=== PATIENT | female | born 1960 | race Caucasian/White ===

== ENCOUNTER → 2017-03-02 | Outpatient (CLI) | payer MEDICARE ==
--- NOTE | 2017-03-03 13:33 | MM ---
Reason for exam: screening (asymptomatic). Last mammogram was performed 1 year and 2 months ago. History: Patient is postmenopausal and is nulliparous. Benign US right core biopsy of the right breast, September 21, 2006. Took hormonal contraceptives for 4 years. Physical Findings: A clinical breast exam by your physician is recommended on an annual basis and results should be correlated with mammographic findings. MG 3D Screening Mammo W/Cad Bilateral CC, MLO, and XCCL view(s) were taken. Prior study comparison: January 05, 2016, bilateral MG 3d screening mammo w/cad. November 07, 2014, bilateral MG screening mammo w CAD. The breast tissue is extremely dense which could obscure a lesion on mammography. No significant changes when compared with prior studies. ASSESSMENT: Benign, BI-RAD 2 RECOMMENDATION: Routine screening mammogram of both breasts in 1 year.
== END | disposition home or self-care (01) ==
LOC: RADMAMWWP 12:02
PROVIDERS: ATTEND Family Medicine
DX: Z12.31 Encounter for screening mammogram for malignant neoplasm of breast (principal)
CPT/HCPCS: 77063; G0202

== ENCOUNTER → 2018-03-30 | Outpatient (CLI) | payer MEDICARE ==
--- NOTE | 2018-03-31 10:03 | MM ---
Reason for exam: screening (asymptomatic). Last mammogram was performed 1 year and 1 month ago. History: Patient is postmenopausal and is nulliparous. Benign US right core biopsy of the right breast, September 21, 2006. Took hormonal contraceptives for 4 years. Physical Findings: A clinical breast exam by your physician is recommended on an annual basis and results should be correlated with mammographic findings. MG 3D Screening Mammo W/Cad Bilateral CC, MLO, and XCCL view(s) were taken. Prior study comparison: March 02, 2017, bilateral MG 3d screening mammo w/cad. January 05, 2016, bilateral MG 3d screening mammo w/cad. The breast tissue is heterogeneously dense. This may lower the sensitivity of mammography. Focal asymmetry in the left breast on MLO view. This finding is changed when compared with previous exams. ASSESSMENT: Incomplete: need additional imaging evaluation, BI-RAD 0 RECOMMENDATION: Special view mammogram of the left breast. If lesion persists on supplemental views, image directed ultrasound is recommended. [facility] will attempt to contact patient to return for supplemental views and ultrasound if indicated.
== END | disposition home or self-care (01) ==
LOC: RADMAMWWP 14:08
PROVIDERS: ATTEND Family Medicine
DX: Z12.31 Encounter for screening mammogram for malignant neoplasm of breast (principal)
CPT/HCPCS: 77063; 77067

== ENCOUNTER → 2018-04-10 | Outpatient (CLI) | payer MEDICARE ==
--- NOTE | 2018-04-10 08:55 | MM ---
Reason for exam: additional evaluation requested from abnormal screening. Last mammogram was performed less than 1 month ago. History: Patient is postmenopausal and is nulliparous. Benign US right core biopsy of the right breast, September 21, 2006. Took hormonal contraceptives for 4 years. Physical Findings: Nurse did not find any significant physical abnormalities on exam. MG 3D Work Up W/Cad LT CC and MLO view(s) were taken of the left breast. Prior study comparison: March 30, 2018, bilateral MG 3d screening mammo w/cad. March 02, 2017, bilateral MG 3d screening mammo w/cad. The breast tissue is heterogeneously dense. This may lower the sensitivity of mammography. The questioned central posterior density on MLO disperses on additional vies. Precautionary 6 month follow up recommended. These results were verbally communicated with the patient and result sheet given to the patient on 04/10/18. ASSESSMENT: Probably benign, BI-RAD 3 RECOMMENDATION: Follow-up diagnostic mammogram of the left breast in 6 months.
== END | disposition home or self-care (01) ==
LOC: RADMAMWWP 07:25
PROVIDERS: ATTEND Family Medicine
DX: R92.8 Other abnormal and inconclusive findings on diagnostic imaging of breast (principal)
CPT/HCPCS: 77065; G0279; 77061

== ENCOUNTER → 2018-04-27 | Outpatient (CLI) | payer MEDICARE ==
--- NOTE | 2018-04-27 12:08 | CTL ---
EXAMINATION TYPE: CT Low Dose Lung DATE OF EXAM ORDERED: 04/27/2018 HISTORY: 57-year-old female no complaints at time of study. History of tobacco use.. Lung cancer scr eening CT DLP: 67.[address] CTDI: 1.8 mGy Automated exposure control for dose reduction was used. SCREENING VISIT: Baseline COMPARISON: None TECHNIQUE: Low dose computed tomography scan was performed through the chest at 1 mm thick sections a nd reconstructed images in the coronal plane at 1 mm thick sections. Coronal and sagittal MIP reconst ructions performed. CT DIAGNOSTIC QUALITY: Satisfactory FINDINGS: Heart normal size with trace anterior basilar pericardial fluid. Aorta normal caliber with conventional arch vessel branching anatomy. Scattered nonenlarged mediastinal lymph nodes. No thoracic lymphadenopathy by CT size criteria. Mild diffuse bronchial wall thickening and mild centrilobular emphysema. No consolidation or pleural effusion. Some strandy atelectasis anterior medial right mid to lower lung. Mild biapical pleural-par enchymal scarring. -3 mm right upper lobe pulmonary nodule axial image 75. No other pulmonary nodule or mass is seen. Visualized upper abdomen shows partially calcified low-density mass of the right adrenal gland measur ing 2.3 cm, probable pseudocyst. The possibility of other mass not excluded at this time. Bones: Mild degenerative disc disease throughout the thoracic spine. IMPRESSION: 1. LungRADS 2S - benign (but with a potentially significant non lung cancer finding, see below #3); s olitary 3 mm pulmonary nodule on the right. 2. COPD with mild emphysema. 3. Partially calcified 2.3 cm lesion within the right adrenal gland. Possible adrenal pseudocyst from prior hemorrhage. A partially calcified mass is not excluded at this time. RECOMMENDATIONS: 1. Continue with annual low-dose lung cancer screening CT of the chest. 2. Smoking cessation. 3. 3 - 6 month follow-up adrenal mass protocol CT. CT LUNG RAD: Lung-Rad 2 Benign Appearance or Behavior
== END | disposition home or self-care (01) ==
LOC: RADCTMAIN 10:49
PROVIDERS: ATTEND Family Medicine
DX: Z12.2 Encounter for screening for malignant neoplasm of respiratory organs (principal); R91.1 Solitary pulmonary nodule; J43.9 Emphysema, unspecified; Z87.891 Personal history of nicotine dependence

== ENCOUNTER → 2018-10-25 | Outpatient (CLI) | payer MEDICARE ==
--- NOTE | 2018-10-30 17:11 | MM ---
Reason for exam: follow-up at short interval from prior study. Last mammogram was performed 6 months ago. History: Patient is postmenopausal and is nulliparous. Benign US right core biopsy of the right breast, September 21, 2006. Took hormonal contraceptives for 4 years. Physical Findings: Nurse did not find any significant physical abnormalities on exam. MG 3D Diag Mammo W/Cad LT CC, MLO, and XCCL view(s) were taken of the left breast. Prior study comparison: April 10, 2018, left breast MG 3d work up w/cad LT. March 30, 2018, bilateral MG 3d screening mammo w/cad. The breast tissue is extremely dense which could obscure a lesion on mammography. No significant new finding when compared with prior studies. These results were verbally communicated with the patient and result sheet given to the patient on 10/25/18. ASSESSMENT: Benign, BI-RAD 2 RECOMMENDATION: Return to routine screening mammogram schedule for both breasts.
== END ==
LOC: RADMAMWWP 06:48
PROVIDERS: ATTEND Family Medicine
DX: R92.8 Other abnormal and inconclusive findings on diagnostic imaging of breast (principal)
CPT/HCPCS: 77065; G0279; 77061

== ENCOUNTER → 2018-12-11 | Outpatient (CLI) | payer MEDICARE ==
[2018-12-11 14:38] LABS: Basophils % (A) 0 %; Eosinophils % (A) 1 %; HCT 45.2 % (34.0-46.0); HGB 14.8 gm/dL (11.4-16.0); Lymphocytes # (A) 1.7 k/uL (1.0-4.8); Lymphocytes % (A) 25 %; MCH 33.6 pg (25.0-35.0); MCHC 32.8 g/dL (31.0-37.0); MCV 102.4 fL (80.0-100.0); Macrocytosis Slight; Mean Platelet Volume 6.6; Monocytes # (A) 0.3 k/uL (0-1.0); Monocytes % (A) 5 %; Neutrophils # (A) 4.6 k/uL (1.3-7.7); Neutrophils % (A) 68 %; Platelet Count 294 k/uL (150-450); RBC 4.42 m/uL (3.80-5.40); RDW 12.6 % (11.5-15.5); WBC 6.7 k/uL (3.8-10.6)
[2018-12-11 14:44] LABS: Appearance,Urine Clear (Clear); Bilirubin,Urine Negative (Negative); Blood,Urine Negative (Negative); Color,Urine Light Yellow; Glucose,Urine (UA) Negative (Negative); Ketones,Urine Negative (Negative); Leukocyte Esterase,Urine Negative (Negative); Nitrite,Urine Negative (Negative); Protein,Urine Negative (Negative); Specific Gravity,Urine 1.007 (1.001-1.035); Urobilinogen,Urine <2.0 mg/dL (<2.0)
[2018-12-11 14:47] LABS: INR 0.9 (<1.2); Partial Thromboplastin Time 26.6 sec (22.0-30.0)
== END ==
LOC: LABPAT 12:57
PROVIDERS: ATTEND Orthopaedic Surgery Orthopaedic Surgery of the Spine
DX: Z01.818 Encounter for other preprocedural examination (principal); Z01.812 Encounter for preprocedural laboratory examination; M48.02 Spinal stenosis, cervical region; G95.89 Other specified diseases of spinal cord; Z79.01 Long term (current) use of anticoagulants
CPT/HCPCS: 81003; 85025; 85610; 85730; 86850; 86900; 86901; 93005

== ENCOUNTER → 2018-12-11 | Outpatient (CLI) | payer MEDICARE ==
[2018-12-11 19:54] LABS: Albumin 4.7 g/dL (3.80-4.90); Albumin/Globulin Ratio 2.35 (1.60-3.17); Anion Gap 9.8 mmol/L (4.00-12.00); Calcium 10.2 mg/dL (8.7-10.3); Carbon Dioxide 29.2 mmol/L (21.6-31.8); Potassium 5.1 mmol/L (3.5-5.5); Total Bilirubin 0.6 mg/dL (0.2-1.2); Total Protein 6.7 g/dL (6.2-8.2)
== END | disposition home or self-care (01) ==
LOC: LABWHC1 13:07
PROVIDERS: ATTEND Family Medicine
DX: Z01.812 Encounter for preprocedural laboratory examination (principal)
CPT/HCPCS: 36415; 80053

== ENCOUNTER 2018-12-20 06:32 | Day surgery (SDC) | payer MEDICARE ==
[2018-12-12 10:22] VITALS: BMI 28.1
[~2018-12-20 06:32] MED LIST: BACITRACIN 50,000 UNIT, POLYMYXIN B 500,000 UNIT in SODIUM CHLORIDE 0.9% IRRIGATIO 1,00... IRRIGATION ONE; DEXAMETHASONE SOD PHOSPHATE 10 MG/ML 1 ML VIAL IV ONE; LACTATED RINGERS 1,000 ML IV SCH; LIDOCAINE 1% 20 ML VIAL (10MG/ML) FOR IV START INTRADERMA PRN; MIDAZOLAM (PF) 2 MG/2 ML VIAL IV PRN; ONDANSETRON 4 MG/2 ML VIAL IVP ONE; SCOPOLAMINE 1.5MG/72HR PATCH TRANSDERM ONE; ceFAZolin IN SWFI 2 GM/20 ML SYRINGE IVP ONE
[2018-12-20] MEDS ORDERED: LIDOCAINE 1% INJ 10MG/ML (20 ML MDV) ONE (07:27)
[2018-12-20] MEDS ORDERED: fentaNYL (PF) 50 MCG/ML 2 ML AMP ONE (07:27)
[2018-12-20] MEDS ORDERED: ePHEDrine SULFATE/0.9% NACL/PF 50 MG/5 ML SYRINGE IV ONE (07:27)
[2018-12-20] MEDS ORDERED: SUCCINYLCHOLINE CHLORIDE 100 MG/5 ML SYR IV ONE (07:27)
[2018-12-20] MEDS ORDERED: GLYCOPYRROLATE 0.2 MG/ML 2 ML VIAL ONE (07:27)
[2018-12-20] MEDS ORDERED: DEXAMETHASONE SOD PHOS (MDV) 100 MG/10 ML VIAL ONE (07:27)
[2018-12-20] MEDS ORDERED: PROPOFOL 10 MG/ML 20 ML VIAL IV ONE (07:27)
[2018-12-20] MEDS ORDERED: MIDAZOLAM 2 MG/2 ML VIAL ONE (07:27)
[2018-12-20] MEDS ORDERED: PHENYLEPHRINE-0.9% NACL SYG 1 MG/10 ML SYRINGE ONE (07:27)
[2018-12-20] MEDS ORDERED: KETAMINE 10 MG/ML 20 ML VIAL ONE (07:27)
[2018-12-20] MEDS ORDERED: BUPIVACAINE-EPI 0.5%-1:200,000 10 ML VIAL SQ ONE ×2 (07:28→08:18)
[2018-12-20] MEDS ORDERED: LACTATED RINGERS 1,000 ML IV ONE (08:15)
[2018-12-20] MEDS ORDERED: THROMBIN (BOVINE) 5,000 UNIT VIAL TOPICAL ONE (08:25)
[2018-12-20] MEDS ORDERED: GELATIN SPONGE,ABSORB (LARGE) 1 EACH SPONGE MISCELLANE ONE (08:25)
[2018-12-20] MEDS ORDERED: BACITRACIN 50,000 UNIT, POLYMYXIN B 500,000 UNIT in SODIUM CHLORIDE 0.9% IRRIGATIO 1,00... IRRIGATION ONE (09:30)
--- NOTE | 2018-12-20 10:08 | XR ---
EXAMINATION TYPE: XR cervical spine 1V, XR cervical spine 1V DATE OF EXAM: 12/20/2018 COMPARISON: NONE HISTORY: Hardware placement localization TECHNIQUE: Single view of the cervical spine was obtained FINDINGS: Localization is seen from anterior approach at the C4-C5 intervertebral disc space levels. Endotracheal tube is present. Degenerative disc disease of the cervical spine is noted. IMPRESSION: Localization from an anterior approach at C4-C5 intervertebral disc space.
[2018-12-20] MEDS ORDERED: MAG HYDROX/AL HYDROX/SIMETH 30 ML CUP PO PRN (10:12)
[2018-12-20] MEDS ORDERED: HYDROmorphone 1 MG/ML 1 ML SYRINGE IVP PRN (10:12)
[2018-12-20] MEDS ORDERED: HYDROmorphone 0.5 MG/0.5 ML SYRINGE IVP PRN (10:12)
[2018-12-20] MEDS ORDERED: ACETAMINOPHEN TAB 325 MG TAB PO PRN (10:12)
[2018-12-20] MEDS ORDERED: BENZOCAINE/MENTHOL LOZENG 1 EACH LOZENGE MUCOUS MEM PRN (10:12)
[2018-12-20] MEDS ORDERED: HYDROcodone/APAP 7.5-325MG 1 EACH TAB PO PRN ×2 (10:14)
[2018-12-20] MEDS ORDERED: FLUTICASONE 50MCG/SPRAY NASAL 16GM EA NOSTRIL PRN (10:14)
[2018-12-20] MEDS ORDERED: ALBUTEROL NEBULIZED 2.5 MG/3 ML INHALATION PRN (10:14)
[2018-12-20] MEDS ORDERED: CYCLOBENZAPRINE 10 MG TAB PO PRN (10:14)
[2018-12-20] MEDS ORDERED: SODIUM CHLORIDE 0.9% 1,000 ML IV SCH (10:15)
--- NOTE | 2018-12-20 10:23 | P.OP ---
Date of Procedure: 12/20/18 Preoperative Diagnosis: Cervical stenosis C3 4 C4 5 C5 6, cervical myelopathy, cervical myelomalacia behind C3 4, disc herniation C3 4 C4 5 C5 6, severe disc degeneration, large osteophytes, neck pain, upper extremity radiculopathy, upper extremity weakness Postoperative Diagnosis: Same Anesthesia: GETA Pathology: none sent Condition: stable Disposition: PACU Description of Procedure: BRIEF OPERATIVE NOTE Preoperative Diagnosis:Cervical stenosis C3 4 C4 5 C5 6, cervical myelopathy, cervical myelomalacia behind C3 4, disc herniation C3 4 C4 5 C5 6, severe disc degeneration, large osteophytes, neck pain, upper extremity radiculopathy, upper extremity weakness Postoperative Diagnosis: Same Procedure: Anterior cervical decompression with discectomy and fusion C3 4 C4 5 C5 6 Placement of interbody graft C3 4 C4 5 C5 6 Application of anterior cervical plate C3 4 5 6 Removal of large anterior cervical osteophytes C3 4 5 6 Surgeon: Dr. Keiht Anesthesiologist And Critical Care: Abril Streeter is present during positioning, dissection, exposure, visualization, and all crucial elements of the case as well as closure. Anesthesia: General anesthesia Estimated blood loss: Approximately 50 mL Complications: None apparent Components implanted: K2M [place] titanium anterior cervical plate with screws and Vikos interbody allograft bone graft with 1 mL of DBX bone putty to supplemental a bone graft Disposition: To recovery room in good stable condition. OPERATIVE INDICATIONS The patient has had long-standing issues in their neck and upper extremities. She's been having worsening symptoms despite aggressive conservative care. She is having severe pain in her neck and symptom intraoperative extremities particularly on the left side. She was having evidence of early cervical myelopathy and on her imaging was found have early cervical myelomalacia with severe cervical stenosis at C3 4 C4 5 C5 6 with disc degeneration disc herniation which correlated with her neck and upper extremity symptoms. The patient has been through conservative treatment. She is not having any benefit despite aggressive conservative treatment and was having worsening of her symptoms We discussed various treatment options including surgery, and the patient wishes to proceed with surgery We discussed the risk, patient's alternatives and benefits of surgery including but not limited to, risk of bleeding risk of infection, risk of need for further surgery, risk of decreased, loss of motion, muscle function, malunion nonunion, hardware failure, nerve damage, paralysis, heart attack, and . OPERATIVE SUMMARY After discussing all the risks, patient alternatives and benefits at length, the patient elected to proceed with surgical intervention, signed informed consent, and presented for their procedure. The patient was seen and examined in the preoperative holding area and the surgical site was marked. The patient was given antibiotics and brought to the operating room. The patient was positioned on the operating room table in a supine position being careful to pad any bony prominences and pressure points. The patient was sedated and intubated by anesthesia in standard fashion. Once the airway and C- spine were stabilized the patient's arms were padded and tucked at her side, with her shoulders gently taped. The head was placed in a donut pad with the neck in good neutral alignment and position. We were careful to maintain the patient's cervical spine and good neutral alignment and position throughout. The patient was prepped and draped in a normal standard fashion. An appropriate timeout and keystone protocol performed. We were able to proceed with the surgery. The local wound area was infiltrated with local anesthetic. An incision was made transversely approximately 2-1/2 cm over the appropriate levels at C4 5. Dissection was taken down subcutaneously to the level of the platysma which was split in line with its fibers. Dissection was taken with a carotid approach, with the trachea and esophagus medial and the carotid sheath laterally. We dissected down to the anterior surface of the vertebral bodies. Intraoperative x-ray was taken which showed a marker at the appropriate level. With the appropriate level positively confirmed, we were able to proceed with discectomy at the appropriate levels starting at C3 4 and then working C4 5 and C5 6. All of the operative levels were exposed appropriately. The patient had all their twitches back, and there was no evidence of recurrent laryngeal issue. The wound was copiously irrigated and suctioned dry as had been done periodically throughout the case. At the appropriate level/levels, starting at C3 4 and then moving the C4 5 and C5 6 I established an annulotomy with an 11 blade scalpel. Large anterior osteophytes had removed particular at C4 5 and C5 6 for exposure. A discectomy was performed with a combination of pituitary rongeurs, curettes, a high-speed bur, and Kerrison rongeurs. The posterior longitudinal ligament was taken down as were any posterior osteophytes. There is severe disc height loss and essentially axqi-gw-[id number] articulation particularly at C4 5 and C5 6. There was a large central disc herniation at C3 4 and significant disc protrusion and stenosis at C45 and C5 6. As able to remove the disc and posterior osteophytes as well as posterior longitudinal ligament appropriately. This gave good central and bilateral foraminal decompression. There is no evidence of any dural tear or leak. The endplates were prepared with a high-speed bur. With the endplates in good parallel position, I was able to size for the appropriate size interbody graft. The wound was irrigated and suctioned dry the graft was prepared and malleted into position. It had good alignment and position with the anterior surface flush with the anterior surface of the vertebral bodies. This was done similarly the appropriate levels from C3 to C6. With the grafts intact, I was able to measure and contour and appropriate sized plate. The plate was positioned at the midline over the appropriate levels from C3 to C6. Screw holes were established with a hand drill and drill guide. Screws were placed in good alignment and position with excellent bony purchase. They were seated under the locking device. The construct was checked and found to be stable. Intraoperative x-ray was taken which showed good alignment and position of the implants at the appropriate levels from C3 to C6. There was no evidence of any dural tear or leak. Good hemostasis was maintained. The wound was copiously irrigated and suctioned dry as had been done periodically throughout the case. The platysma was closed with absorbable suture. The subcutaneous tissue was closed. The subcuticular tissue was closed with absorbable suture. The wound was cleaned and dried and dressed appropriately. A soft cervical collar was placed appropriately. The patient was woken up by anesthesia, extubated, transferred back gently to their hospital bed and brought to the recovery room in good stable condition. The patient will be admitted to the hospital for appropriate postoperative care, medical management and monitoring. We will continue to follow them closely about the postoperative course.
[2018-12-20 10:25] VITALS: TEMP 97.1
[2018-12-20] MEDS: HYDROmorphone 0.5 MG/0.5 ML SYRINGE IVP PRN ×2 (11:30→11:36)
[2018-12-20 11:58] VITALS: RESP 18
[2018-12-20] MEDS ORDERED: HYDROcodone/APAP 7.5-325MG 1 EACH TAB PO ONE (12:29)
[2018-12-20 12:40] VITALS: BP 128/72; PULSE 72
[2018-12-20] MEDS ORDERED: ceFAZolin IN SWFI 2 GM/20 ML SYRINGE IVP SCH (16:00)
[2018-12-20] MEDS ORDERED: MONTELUKAST 10 MG TAB PO SCH (21:00)
[2018-12-21] MEDS ORDERED: IPRATROPIUM 0.5 MG/2.5 ML NEBU INHALATION SCH (08:00)
[2018-12-21] MEDS ORDERED: CITALOPRAM HYDROBROMIDE 20 MG TAB PO SCH (09:00)
[2018-12-21] MEDS ORDERED: LORATADINE 10 MG TAB PO SCH (09:00)
[2018-12-21] MEDS ORDERED: CHOLECALCIFEROL 1,000 UNIT TAB PO SCH (09:00)
[2018-12-21] MEDS ORDERED: SENNOSIDES-DOCUSATE SODIUM 1 EACH TAB PO SCH ×2 (09:00)
== END 2018-12-20 13:29 | disposition home or self-care (01) ==
LOC: OR 06:32 → EDSTATUS 09:45 → OR 13:29
PROVIDERS: ATTEND Orthopaedic Surgery Orthopaedic Surgery of the Spine
DX: M50.01 Cervical disc disorder with myelopathy, high cervical region (principal); M48.02 Spinal stenosis, cervical region; M54.12 Radiculopathy, cervical region; G95.89 Other specified diseases of spinal cord; M25.78 Osteophyte, vertebrae; J44.9 Chronic obstructive pulmonary disease, unspecified; F17.218 Nicotine dependence, cigarettes, with other nicotine-induced disorders; J98.4 Other disorders of lung; F32.9 Major depressive disorder, single episode, unspecified; F41.9 Anxiety disorder, unspecified; M19.90 Unspecified osteoarthritis, unspecified site; R51 Headache; Z79.899 Other long term (current) drug therapy; Z88.8 Allergy status to other drugs, medicaments and biological substances; Z91.013 Allergy to seafood; Z96.643 Presence of artificial hip joint, bilateral
CPT/HCPCS: 22551; 22552 ×2; 20930; 22853 ×3; 72020; C1713 ×2; C1762 ×2; J2250; J2405; J2001; J3010; J1100; J2370; J0330; J2704; J1170; J0690; 86850; 86900; 86901

== ENCOUNTER → 2019-05-25 | Outpatient (CLI) | payer MEDICARE ==
--- NOTE | 2019-05-29 09:23 | MM ---
Reason for exam: screening (asymptomatic). Last mammogram was performed 7 months ago. History: Patient is postmenopausal and is nulliparous. Benign US right core biopsy of the right breast, September 21, 2006. Took hormonal contraceptives for 4 years. Physical Findings: A clinical breast exam by your physician is recommended on an annual basis and results should be correlated with mammographic findings. MG 3D Screening Mammo W/Cad Bilateral CC, MLO, and XCCL view(s) were taken. Prior study comparison: October 25, 2018, left breast MG 3d diag mammo w/cad LT. April 10, 2018, left breast MG 3d work up w/cad LT. The breast tissue is heterogeneously dense. This may lower the sensitivity of mammography. No significant changes when compared with prior studies. ASSESSMENT: Negative, BI-RAD 1 RECOMMENDATION: Routine screening mammogram of both breasts in 1 year. Patient should continue monthly self breast exams. A negative report should not preclude additional follow up of suspicious palpable abnormalities.
== END | disposition home or self-care (01) ==
LOC: RADMAMWWP 15:30
PROVIDERS: ATTEND Family Medicine
DX: Z12.31 Encounter for screening mammogram for malignant neoplasm of breast (principal)
CPT/HCPCS: 77063; 77067

== ENCOUNTER → 2019-08-24 | Outpatient (CLI) | payer MEDICARE ==
--- NOTE | 2019-08-24 11:44 | CTL ---
EXAMINATION TYPE: CT Low Dose Lung DATE OF EXAM ORDERED: 08/24/2019 HISTORY: . Lung cancer screening CT DLP: [address] CTDI: 1.87 mGy Automated exposure control for dose reduction was used. SCREENING VISIT: COMPARISON: 04/27/2018 TECHNIQUE: Low dose computed tomography scan was performed through the chest at 1 mm thick sections a nd reconstructed images in the coronal plane at [address] DIAGNOSTIC QUALITY: Satisfactory FINDINGS: Heart normal size with trace anterior basilar pericardial fluid. Aorta normal caliber with conventional arch vessel branching anatomy. Scattered nonenlarged mediastinal lymph nodes. No thoracic lymphadenopathy by CT size criteria. Mild diffuse bronchial wall thickening and mild centrilobular emphysema. No consolidation or pleural effus ion. Some strandy atelectasis anterior medial right mid to lower lung. Mild biapical pleural-parenchymal scarring. There is a stable 3 mm right upper lobe pulmonary nodule. There now is a 2 mm subpleural nodule right upper lobe image 135. Subsegmental changes seen anterior ly within the left lung. Most typical atelectasis. Visualized upper abdomen shows partially calcified low-density mass of the right adrenal gland measur ing 2.3 cm, probable pseudocyst. The possibility of other mass not excluded at this time. Bones: Mild degenerative disc disease throughout the thoracic spine. IMPRESSION: 1. LungRADS 2S - benign 3 mm pulmonary nodule in the right upper lobe is stable. There is a new 2 mm subpleural nodule on image #135 which has a benign appearance. 2. COPD with mild emphysema. 3. Partially calcified 2.3 cm lesion within the right adrenal gland. Possible adrenal pseudocyst from prior hemorrhage. A partially calcified mass is not excluded at this time. Findings stable from prio r exam. FOLLOW UP CT CHEST RECOMMENDATION: 1. Continue with annual low-dose lung cancer screening CT of the chest. 2. Smoking cessation. CT LUNG RAD: Lung-Rad 2 Benign Appearance or Behavior
== END ==
LOC: RADCTMAIN 11:08
PROVIDERS: ATTEND Family Medicine
DX: J43.9 Emphysema, unspecified (principal); F17.200 Nicotine dependence, unspecified, uncomplicated

== ENCOUNTER → 2020-05-08 | Day surgery (SDC) | payer MEDICARE ==
[2020-05-07 10:33] VITALS: BMI 28.1
[~2020-05-08] MED LIST changes: -BACITRACIN 50,000 UNIT, POLYMYXIN B 500,000 UNIT in SODIUM CHLORIDE 0.9% IRRIGATIO 1,00... IRRIGATION ONE; -DEXAMETHASONE SOD PHOSPHATE 10 MG/ML 1 ML VIAL IV ONE; +LACTATED RINGERS 1,000 ML IV ONE; +LIDOCAINE 1% (10MG/ML) FOR IV START INTRADERMA PRN; -LIDOCAINE 1% 20 ML VIAL (10MG/ML) FOR IV START INTRADERMA PRN; +LIDOCAINE 1% INJ 10MG/ML (20 ML MDV) ONE; -MIDAZOLAM (PF) 2 MG/2 ML VIAL IV PRN; -ONDANSETRON 4 MG/2 ML VIAL IVP ONE; +PROPOFOL 10 MG/ML 20 ML VIAL IV ONE; -SCOPOLAMINE 1.5MG/72HR PATCH TRANSDERM ONE; -ceFAZolin IN SWFI 2 GM/20 ML SYRINGE IVP ONE
[2020-05-08 09:35] VITALS: TEMP 97.8
--- NOTE | 2020-05-08 11:10 | P.GSHP ---
History of Present Illness H&P Date: 05/08/20 Chief Complaint: Dysphagia This a 51-year-old female with complaints dysphagia. Patient also has a hoarse voice. She states previous vocal cord surgery Past Medical History Past Medical History: Asthma, Osteoarthritis (OA) Additional Past Medical History / Comment(s): BACK PAIN, ENVIRONMENTAL ALLERGIES, OCCASIONAL GERD., HX OF VOCAL CORD POLYPS., STATES INCREASED SOB. History of Any Multi-Drug Resistant Organisms: None Reported Past Surgical History: Appendectomy, Back Surgery, Joint Replacement, Orthopedic Surgery Additional Past Surgical History / Comment(s): SINUS SURGERY,RIGHT AND LEFT TOTAL HIP, CYST ON RIGHT OVARY-EXC, VOCAL CORD POLYP, RIGHT BUNIONECTOMY, LAPAROSCOPIC EXAM , LOWER BACK AND CERVICAL FUSION. Past Anesthesia/Blood Transfusion Reactions: Motion Sickness, Postoperative Nausea & Vomiting (PONV) Past Psychological History: Anxiety, Depression Smoking Status: Current every day smoker Past Alcohol Use History: Occasional Additional Past Alcohol Use History / Comment(s): STARTED SMOKING AT AGE 19., SMOKES 1PPD Past Drug Use History: None Reported - Past Family History Mother Family Medical History: No Reported History Father Family Medical History: Cancer Additional Family Medical History / Comment(s): LEUKEMIA Medications and Allergies Home Medications Medication Instructions Recorded Confirmed Type Albuterol Sulfate [Proair Hfa] 1 - 2 puff INHALATION TID PRN 08/18/16 05/07/20 History Celecoxib [CeleBREX] 200 mg PO DAILY 08/18/16 05/07/20 History Cholecalciferol [Vitamin D3] 1,000 unit PO DAILY 08/18/16 05/07/20 History Cyclobenzaprine [Flexeril] 10 mg PO TID PRN 08/18/16 05/07/20 History Fexofenadine HCl [Sobia Allergy] 180 mg PO DAILY 08/18/16 05/07/20 History Hydrocodone/Acetaminophen [[place] 1 tab PO Q8HR PRN 08/18/16 05/07/20 History 7.5-325] Tiotropium 18 Mcg/Puff [Spiriva] 1 puff INHALATION DAILY 12/12/18 05/07/20 History DULoxetine HCL [Cymbalta] 60 mg PO DAILY 05/07/20 05/07/20 History Vitamin B Complex 1 each PO DAILY 05/07/20 05/07/20 History Allergies Allergy/AdvReac Type Severity Reaction Status Date / Time adhesive tape Allergy Rash/Hives Verified 05/07/20 10:04 Iodinated Contrast Media Allergy FLUSHED,HOT Verified 05/07/20 10:04 [Iodinated Contrast Media - AND PASSED IV Dye] OUT iodine Allergy PER Verified 05/07/20 10:04 ALLERGY TEST nickel Allergy Rash/Hives Verified 05/07/20 10:04 shellfish derived [Shellfish] Allergy PER Verified 05/07/20 10:04 ALLERGY TEST Surgical - Exam Vital Signs Temp Pulse Resp BP Pulse Ox 97.8 F 78 18 151/87 97 05/08/20 09:34 05/08/20 09:34 05/08/20 09:34 05/08/20 09:34 05/08/20 09:34 - General well developed, well nourished, no distress - Eyes PERRL - ENT normal pinna - Neck no masses - Respiratory normal expansion - Cardiovascular Rhythm: regular - Abdomen Abdomen: soft, non tender Assessment and Plan Assessment: History of dysphagia. We'll perform EGD.
--- NOTE | 2020-05-08 11:17 | P.OP ---
Date of Procedure: 05/08/20 Preoperative Diagnosis: Dysphagia Postoperative Diagnosis: Mild antral gastritis Procedure(s) Performed: EGD Anesthesia: MAC Surgeon: Harshal Resendez Pathology: other (Antrum) Condition: stable Disposition: PACU Description of Procedure: The patient's placed on the endoscopy table in the lateral position. She received IV sedation. The gastro-/oropharynx and passed in the esophagus and stomach. Scope was then placed through the pylorus. The first and second portion of the duodenum appeared normal. Scope was then brought back the antrum thisAppearedMildly inflamed. A biopsies performed. Scope was retroflexed and remainder of the stomach appeared normal. The GE junction was at 40 cm. There was no significant hiatal hernia. The distal esophagus appeared normal the proximal esophagus appeared normal. Scope was withdrawn for patient. There was no evidence of any inflammation or mechanical traction to explain patient's history of dysphagia.
[2020-05-08 11:20] VITALS: RESP 16
[2020-05-08 11:33] VITALS: BP 117/72; PULSE 54
== END ==
LOC: ORWHC2ENDO 09:10
PROVIDERS: ATTEND Surgery
DX: K29.70 Gastritis, unspecified, without bleeding (principal); J44.9 Chronic obstructive pulmonary disease, unspecified; K21.9 Gastro-esophageal reflux disease without esophagitis; F17.210 Nicotine dependence, cigarettes, uncomplicated; M19.90 Unspecified osteoarthritis, unspecified site; F41.9 Anxiety disorder, unspecified; F32.9 Major depressive disorder, single episode, unspecified; Z91.048 Other nonmedicinal substance allergy status; Z90.49 Acquired absence of other specified parts of digestive tract; Z91.041 Radiographic dye allergy status; Z79.899 Other long term (current) drug therapy; Z96.643 Presence of artificial hip joint, bilateral; Z90.89 Acquired absence of other organs; Z98.1 Arthrodesis status; Z98.890 Other specified postprocedural states; Z91.013 Allergy to seafood; Z80.6 Family history of leukemia
CPT/HCPCS: 88305; 43239; J2001; J2704

== ENCOUNTER → 2020-08-22 | Outpatient (CLI) | payer MEDICARE ==
--- NOTE | 2020-08-25 09:24 | MM ---
Reason for exam: screening (asymptomatic). Last mammogram was performed 1 year and 3 months ago. History: Patient is postmenopausal and is nulliparous. Benign US right core biopsy of the right breast, September 21, 2006. Took hormonal contraceptives for 4 years. Physical Findings: A clinical breast exam by your physician is recommended on an annual basis and results should be correlated with mammographic findings. MG 3D Screening Mammo W/Cad Bilateral CC and MLO view(s) were taken. Prior study comparison: May 25, 2019, bilateral MG 3d screening mammo w/cad. October 25, 2018, left breast MG 3d diag mammo w/cad LT. The breast tissue is heterogeneously dense. This may lower the sensitivity of mammography. Benign appearing calcifications in the right breast. No significant changes when compared with prior studies. ASSESSMENT: Benign, BI-RAD 2 RECOMMENDATION: Routine screening mammogram of both breasts in 1 year.
== END | disposition home or self-care (01) ==
LOC: RADMAMWWP 09:32
PROVIDERS: ATTEND Family Medicine
DX: Z12.31 Encounter for screening mammogram for malignant neoplasm of breast (principal)
CPT/HCPCS: 77063; 77067

== ENCOUNTER → 2021-03-17 | Outpatient (CLI) | payer MEDICARE ==
--- NOTE | 2021-03-17 14:02 | EST ---
EXERCISE STRESS DATE OF SERVICE: March 17, 2021 AGE: 60 SEX: F HT: 5'7" WT: 170 PROTOCOL: Lexiscan STAGE: N/A DURATION OF EXERCISE: 5 min. HEART RATE REST: 69 BLOOD PRESSURE REST: 117/71 MAXIMUM HEART RATE ACHIEVED: 93 MAXIMUM BLOOD PRESSURE: 127/68 85% MPHR: 137 100% MPHR: 164 METS: N/A INDICATIONS: Chest pain. STRESS DATA: Heart rate 69, pressure is 117/71 mmHg. Baseline EKG showed sinus mechanism. 0.4 mg of Lexiscan given over 15 seconds per protocol. Max heart rate was 91 beats per minute and maximum pressure was 127/68 mmHg. Clinically, the patient did not have any symptoms and the EKG did not show any significant ST or T-wave abnormalities concerning for ischemia. CONCLUSION: 1. Nondiagnostic electrocardiogram stress testing in response to Lexiscan. 2. Please follow up on the Cardiolite portion on a separate report from Radiology Department. MMODL / IJN: [id number] /
--- NOTE | 2021-03-17 15:26 | NM ---
EXAMINATION TYPE: NM stress lexiscan cardiolite DATE OF EXAM: 03/17/2021 COMPARISON: NONE HISTORY: Abnormal EKG TECHNIQUE: After the intravenous administration of 9.8 mCi Tc 99m Sestamibi - Cardiolite resting SPE CT images acquired 60 minutes post injection. At peak stress 24.2 mCi Tc 99m Sestamibi - Stress images obtained 45 minutes post injection The patient was stressed with 0.4mg Lexiscan. FINDINGS: There is diminished radiotracer accumulation overlying the cardiac apex on both rest and stress image s. Some inferior septal wall diminished intensity is present this appears largely fixed. Some reversi bility suggesting ischemia in the eliz-infarct region is within the inferior wall near the base. Wall motion is normal Ejection fraction is calculated to be 70 %. IMPRESSION: 1. 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 2. There may be some mild reversibility near the cardiac base within the inferior wall suggesting per i-infarct ischemic changes. A [place] level critical message alert has been initiated for Sil Burgess DO via the [facility] Critical Results System on 03/17/2021 3:23 PM. This message alert has been sent to Sil goins DO via the preferences provided by the clinician for the receipt of Radiology Critical Findings. Message ID [id number].
== END | disposition home or self-care (01) ==
LOC: RADNMMAIN 07:41
PROVIDERS: ATTEND Family Medicine
DX: I51.0 Cardiac septal defect, acquired (principal)
CPT/HCPCS: 93017; 78452; A9500

== ENCOUNTER 2021-04-01 06:03 | Day surgery (SDC) | payer MEDICARE ==
[2021-03-27 16:27] VITALS: BMI 26.6
[~2021-04-01 06:03] MED LIST changes: +ALPRAZolam 0.25 MG TAB PO PRN; +ALPRAZolam 0.5 MG TAB PO PRN; +HEPARIN SODIUM,PORCINE 2,500 UNIT in SODIUM CHLORIDE 0.9% 250 ML IRRIGATION PRN; -LACTATED RINGERS 1,000 ML IV ONE; -LACTATED RINGERS 1,000 ML IV SCH; -LIDOCAINE 1% (10MG/ML) FOR IV START INTRADERMA PRN; -LIDOCAINE 1% INJ 10MG/ML (20 ML MDV) ONE; +NITROGLYCERIN SL TABS 0.4 MG TAB SUBLINGUAL PRN; -PROPOFOL 10 MG/ML 20 ML VIAL IV ONE; +SODIUM CHLORIDE 0.9% 1,000 ML in EMPTY BAG 1 BAG IV ONE
[2021-04-01 06:49] VITALS: RESP 16; TEMP 98.8
[2021-04-01] MEDS ORDERED: ASPIRIN 325 MG TAB PO ONE (07:00)
[2021-04-01] MEDS ORDERED: ATORVASTATIN 80 MG TAB PO ONE (07:00)
[2021-04-01] MEDS ORDERED: HEPARIN SODIUM,PORCINE 10,000 UNIT in SODIUM CHLORIDE 0.9% 1,000 ML IRRIGATION PRN (07:00)
[2021-04-01] MEDS ORDERED: LIDOCAINE 1% INJ 10MG/ML (20 ML MDV) ONE (07:18)
[2021-04-01] MEDS ORDERED: VERAPAMIL 2.5 MG/ML 2 ML AMP ONE (07:18)
[2021-04-01] MEDS ORDERED: fentaNYL (PF) 50 MCG/ML 2 ML AMP ONE (07:25)
[2021-04-01] MEDS ORDERED: fentaNYL (PF) 50 MCG/ML 2 ML AMP IV ONE (07:47)
[2021-04-01] MEDS ORDERED: LIDOCAINE 1% INJ 10MG/ML (20 ML MDV) SQ ONE ×2 (07:54→07:55)
[2021-04-01] MEDS ORDERED: HEPARIN SODIUM 1,000 UN/ML (10ML VL) IV ONE (07:57)
[2021-04-01] MEDS ORDERED: VERAPAMIL SYRINGE (5 MG/10 ML) INTRAARTER ONE (07:57)
[2021-04-01] MEDS ORDERED: MIDAZOLAM 2 MG/2 ML VIAL IV ONE (07:59)
[2021-04-01] MEDS ORDERED: HEPARIN SODIUM 1,000 UN/ML (10ML VL) ONE (07:59)
[2021-04-01] MEDS ORDERED: IOPAMIDOL-370 125ML BTL INJ ONE (08:04)
[2021-04-01] MEDS ORDERED: RX INFO: IV CONTRAST WAS GIVEN 1 EACH MISC MISCELLANE PRN (08:14)
[2021-04-01] MEDS ORDERED: CYCLOBENZAPRINE 10 MG TAB PO PRN (08:15)
[2021-04-01] MEDS ORDERED: SODIUM CHLORIDE 0.9% 1,000 ML IV SCH (08:15)
--- NOTE | 2021-04-01 10:13 | CC ---
CARDIAC CATHETERIZATION REPORT HISTORY: Mrs. Choi is a 60-year-old female with a history of chronic tobacco use, hypertension, hyperlipidemia, chronic obstructive lung disease, who has been complaining of progressive dyspnea and underwent a myocardial perfusion imaging that revealed evidence of inducible ischemia. In view of that, recommendation was made regarding cardiac catheterization. The procedure as well as the risks and the complications were discussed with the patient who is in full understanding and agreement. 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 Using Xylocaine anesthesia and Seldinger technique, a 6-Congolese sheath was introduced in the right radial artery. Selective right and left coronary angiography performed using 5-Congolese 3.5 bend right and left Mirian catheter. Multiple views of the coronary artery including hemiaxial views were obtained. Following that catheter and sheath were removed. Hemostasis was obtained with deployment of a TR band. There was no complication. Patient was returned to room in stable condition. Of note, the right Mirian catheter was used to cross the aortic valve and left ventricular end-diastolic pressure was calculated. The patient received 4000 units of intravenous heparin as well as intra-arterial verapamil. FINDINGS: LEFT MAIN: This is a large-sized vessel, bifurcating into left circumflex, left anterior descending artery. Left main coronary artery has no evidence of high-grade stenosis. LEFT ANTERIOR DESCENDING ARTERY: This is a large-sized vessel giving rise to 2 diagonal branch. Left anterior descending artery as well as branches have no evidence of obstructive disease. LEFT CIRCUMFLEX: This is a large nondominant vessel giving rise to 3 obtuse marginal branches. The 1st two branches are the largest in caliber. The left circumflex as well as branches have no evidence of obstructive disease. RIGHT CORONARY ARTERY: This is a large dominant vessel bifurcating into PDA and posterolateral segment branches. The right coronary artery as well as branches have no evidence of obstructive disease. LEFT VENTRICULOGRAM: Not performed. HEMODYNAMICS: There was no gradient across the aortic valve. The left ventricle end-diastolic pressure was 12-16 the mmHg. CONCLUSION: 1. Normal coronary arteries. 2. Right dominance. RECOMMENDATIONS: In view of finding anatomy, I recommend continue medical therapy with aggressive coronary risk modifications being initiated. Those findings and recommendation were discussed with the patient and her family and they are full understanding and agreement. Duration of sedation is 12 minutes. MMODL / IJN: [id number] /
[2021-04-01 10:18] VITALS: BP 126/68; PULSE 62
[2021-04-01] MEDS ORDERED: ATORVASTATIN 40 MG TAB PO SCH (21:00)
[2021-04-02] MEDS ORDERED: METOPROLOL SUCCINATE (ER) 25 MG TAB.ER.24H PO SCH (09:00)
[2021-04-02] MEDS ORDERED: ASPIRIN 81 MG PO SCH (09:00)
== END 2021-04-01 11:15 | disposition home or self-care (01) ==
LOC: CATHCVL 06:03
PROVIDERS: ATTEND Internal Medicine Interventional Cardiology
DX: R06.00 Dyspnea, unspecified (principal); R94.39 Abnormal result of other cardiovascular function study; I10 Essential (primary) hypertension; E78.2 Mixed hyperlipidemia; E78.00 Pure hypercholesterolemia, unspecified; Z20.822 Contact with and (suspected) exposure to COVID-19; J44.9 Chronic obstructive pulmonary disease, unspecified; M19.90 Unspecified osteoarthritis, unspecified site; Z87.891 Personal history of nicotine dependence; Z98.1 Arthrodesis status; Z90.89 Acquired absence of other organs; Z96.649 Presence of unspecified artificial hip joint; Z82.49 Family history of ischemic heart disease and other diseases of the circulatory system; Z79.82 Long term (current) use of aspirin; Z79.899 Other long term (current) drug therapy; Z88.6 Allergy status to analgesic agent
CPT/HCPCS: 93458; 87635; C1894; C1769; J2250; J2001; J3010; J1644; Q9967

== ENCOUNTER → 2021-04-08 | Outpatient (CLI) | payer MEDICARE ==
--- NOTE | 2021-04-08 10:33 | US ---
EXAMINATION TYPE: US gallbladder DATE OF EXAM: 04/08/2021 COMPARISON: NONE CLINICAL HISTORY: K80.10 CALCULUS OF Gallbladder, chronic CHOLECYSTITIS. Pt states ABD pain EXAM MEASUREMENTS: Liver Length: 13.9 cm Gallbladder Wall: 0.2 cm CBD: 0.9 cm Right Kidney: 10.0 x 3.5 x 5.4 cm Pancreas: wnl Liver: wnl Gallbladder: Possible small polyps posterior wall Evidence for sonographic Huggins's sign: Yes CBD: 9 mm focally dilated common bile duct. An MRCP or ERCP may be helpful for further evaluation. Right Kidney: wnl IMPRESSION: 1. Focally dilated bile duct measuring up to 9 mm. An MRCP or ERCP may be helpful for further evaluat ion. Obstructing lesion is not excluded. 2. Probable small polyps in the gallbladder wall posteriorly. This measures up to 3 mm.
--- NOTE | 2021-04-08 17:09 | CT ---
EXAMINATION TYPE: CT abdomen pelvis wo con DATE OF EXAM: 04/08/2021 COMPARISON: None INDICATION: Small bowel obstruction DLP: 458 mGycm, Automated exposure control for dose reduction was used. CONTRAST: 0 mL of Isovue 300. Study performed with Oral Contrast TECHNIQUE: Axial images were obtained from above the diaphragm to the pubic rami in the axial plane a t 5 mm thick sections. Reconstructed images are reviewed on the computer in the coronal plane. FINDINGS: Limited CT sections are obtained the lung bases. The lung bases are clear. CT ABDOMEN: Liver: Normal Spleen: Normal Pancreas: Normal Adrenal glands: Right adrenal gland is enlarged and contains a large calcification. This measures 1.9 cm. Prior adrenal hemorrhage most likely is within the differential. Left adrenal gland is normal. Gallbladder: Normal Kidneys: No masses are evident. No hydronephrosis is present. No cysts are present. No renal stone s are evident Aorta: Vascular calcification is within the aorta. Inferior vena cava: Normal. CT PELVIS: Loops of bowel within the abdomen and pelvis are normal. There are loops of bowel which are incom pletely distended or lack oral contrast limiting their evaluation. Appendix: Not visualized. No suspicious dilated tubular structure or inflammatory change is evident. Surgical history is that of appendectomy. Urinary bladder: Limited evaluation with bilateral hip prostheses artifact Genitourinary structures: Uterus is partially visualized. Left adnexa appears normal. Right adnexal r egion appears clear. Osseous structures: No suspicious lytic or sclerotic lesions. IMPRESSIONS: 1. Oral contrast extends throughout the loops of bowel to the rectum. No obstruction is identified. 2. 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
== END | disposition home or self-care (01) ==
LOC: RADUSWWP 07:11
PROVIDERS: ATTEND Surgery Plastic and Reconstructive Surgery
DX: K80.10 Calculus of gallbladder with chronic cholecystitis without obstruction (principal); K56.609 Unspecified intestinal obstruction, unspecified as to partial versus complete obstruction
CPT/HCPCS: 74176; 76705

== ENCOUNTER 2021-04-09 07:57 | Day surgery (SDC) | payer MEDICARE ==
[2021-04-06 18:25] VITALS: BMI 26.2
[~2021-04-09 07:57] MED LIST changes: -ALPRAZolam 0.25 MG TAB PO PRN; -ALPRAZolam 0.5 MG TAB PO PRN; -HEPARIN SODIUM,PORCINE 2,500 UNIT in SODIUM CHLORIDE 0.9% 250 ML IRRIGATION PRN; +LACTATED RINGERS 1,000 ML IV SCH; +LIDOCAINE 1% (10MG/ML) FOR IV START INTRADERMA PRN; -NITROGLYCERIN SL TABS 0.4 MG TAB SUBLINGUAL PRN; -SODIUM CHLORIDE 0.9% 1,000 ML in EMPTY BAG 1 BAG IV ONE
[2021-04-09 08:08] VITALS: RESP 16; TEMP 97.8
[2021-04-09] MEDS ORDERED: PROPOFOL 10 MG/ML 20 ML VIAL IV ONE (08:27)
[2021-04-09] MEDS ORDERED: GLYCOPYRROLATE 0.2 MG/ML 2 ML VIAL ONE (08:27)
[2021-04-09] MEDS ORDERED: LIDOCAINE 1% INJ 10MG/ML (20 ML MDV) ONE (08:27)
--- NOTE | 2021-04-09 08:46 | P.GSHP ---
History of Present Illness H&P Date: 04/09/21 CHIEF COMPLAINT: GERD and colon screen HISTORY OF PRESENT ILLNESS: The patient is a 60-year-old female who presents with gastroesophageal reflux disease and need for colon screen. Upper and lower endoscopy were offered for further evaluation and management. PAST MEDICAL HISTORY: Please see list. PAST SURGICAL HISTORY: Please see list. MEDICATIONS: Please see list. ALLERGIES: Please see list. SOCIAL HISTORY: No illicit drug use FAMILY HISTORY: No reports of Crohn disease or ulcerative colitis. REVIEW OF ORGAN SYSTEMS: CONSTITUTIONAL: No reports of fevers or chills. GI: Denies any blood in stools or constipation. PHYSICAL EXAM: VITAL SIGNS: Stable GENERAL: Well-developed pleasant in no acute distress. HEENT: No scleral icterus. Extraocular movements grossly intact. Moist buccal mucosa. NECK: Supple without lymphadenopathy. CHEST: Unlabored respirations. Equal bilateral excursions. CARDIOVASCULAR: Regular rate and rhythm. Distal 2+ pulses. ABDOMEN: Soft, nondistended. MUSCULOSKELETAL: No clubbing, cyanosis, or edema. ASSESSMENT: 1. Gastroesophageal reflux disease 2. Colon screen. PLAN: 1. Recommend proceeding with an upper and lower endoscopy Past Medical History Past Medical History: Asthma, COPD, GERD/Reflux, Musculoskeletal Disorder, Osteoarthritis (OA) Additional Past Medical History / Comment(s): Chronic Back pain, seasonal allergies, Hx of vocal cord polyps. Large gallstone on scan. c/o Increased shortness of breath, c/o bloating, heartburn. History of Any Multi-Drug Resistant Organisms: None Reported Past Surgical History: Adenoidectomy, Appendectomy, Back Surgery, Joint Replacement, Orthopedic Surgery, Tonsillectomy Additional Past Surgical History / Comment(s): Sinus surg, Bilat Total Hips, CYST ON RIGHT OVARY-EXC, VOCAL CORD POLYP, RIGHT BUNIONECTOMY, LAPAROSCOPIC EXAM , LOWER BACK AND CERVICAL FUSIONs. Pain procedure x1 Past Anesthesia/Blood Transfusion Reactions: Motion Sickness, Postoperative Nausea & Vomiting (PONV) Smoking Status: Current every day smoker - Past Family History Mother Family Medical History: No Reported History Father Family Medical History: Cancer Additional Family Medical History / Comment(s): LEUKEMIA Medications and Allergies Home Medications Medication Instructions Recorded Confirmed Type Albuterol Sulfate [Proair Hfa] 1 - 2 puff INHALATION TID PRN 08/18/16 04/09/21 History Celecoxib [CeleBREX] 200 mg PO DAILY 08/18/16 04/06/21 History Cholecalciferol [Vitamin D3] 2,000 unit PO DAILY 08/18/16 04/09/21 History Cyclobenzaprine [Flexeril] 10 mg PO Q8HR PRN 08/18/16 04/09/21 History Fexofenadine HCl [Sobia Allergy] 180 mg PO DAILY 08/18/16 04/09/21 History Hydrocodone/Acetaminophen [[place] 1 tab PO Q8HR PRN 08/18/16 04/09/21 History 7.5-325] Aspirin [Adult Low Dose Aspirin EC] 81 mg PO DAILY 03/27/21 04/06/21 History Atorvastatin [Lipitor] 40 mg PO HS 03/27/21 04/09/21 History Metoprolol Succinate (ER) [Toprol 25 mg PO DAILY 03/27/21 04/09/21 History Xl] Allergies Allergy/AdvReac Type Severity Reaction Status Date / Time adhesive tape Allergy Rash/Hives Verified 04/06/21 18:04 Iodinated Contrast Media Allergy FLUSHED,HOT Verified 04/06/21 18:04 [Iodinated Contrast Media - AND PASSED IV Dye] OUT iodine Allergy PER Verified 04/06/21 18:04 ALLERGY TEST nickel Allergy Rash/Hives Verified 04/06/21 18:04 shellfish derived [Shellfish] Allergy PER Verified 04/06/21 18:04 ALLERGY TEST NSAIDS (Non-Steroidal AdvReac Unknown stomach Verified 04/06/21 18:04 Anti-Inflamma "burning" Surgical - Exam Vital Signs Temp Pulse Resp BP Pulse Ox 97.8 F 83 16 136/79 93 L 04/09/21 08:08 04/09/21 08:08 04/09/21 08:08 04/09/21 08:08 04/09/21 08:08
[2021-04-09 09:28] VITALS: BP 117/79; PULSE 59
--- NOTE | 2021-04-09 09:35 | P.PCN ---
Date of Procedure: 04/09/21 Description of Procedure: PREOPERATIVE DIAGNOSIS: Gastroesophageal reflux disease. POSTOPERATIVE DIAGNOSIS: Gastritis. Gastroesophageal reflux disease. Duodenitis OPERATION: Esophagogastroduodenoscopy with biopsies along antrum and duodenum SURGEON: Jana Hart MD ANESTHESIA: MAC. INDICATIONS: The patient is a 60-year-old female who presents with a history of reflux disease. Benefits and risks of the procedure were described. Informed consent was obtained. DESCRIPTION: The patient was brought into the endoscopy suite and laid in the left lateral decubitus position. An Olympus gastroscope was passed along the posterior oropharynx down to the distal esophagus where the squamocolumnar junction was encountered at 42 cm from the incisors. The stomach was entered and no bile reflux was found. Additional findings are listed below. Biopsies with cold forceps were obtained of the antrum. The first through third portion of the duodenum was examined for duodenitis. Retroflexion of the scope confirmed Hill grade 2 lower esophageal valve. The squamocolumnar junction demonstrated no LA grade A erosive esophagitis. The stomach was desufflated. The patient tolerated the procedure well. FINDINGS: Squamocolumnar junction 42 cm from the incisors. Diaphragmatic hiatus at 42 cm. Hill grade 2 lower esophageal valve. No LA grade A erosive esophagitis. Active duodenitis with cold forceps biopsies obtained. Chronic gastritis with cold forceps biopsy obtained RECOMMENDATIONS: 1. Recommend omeprazole 40 mg daily for 2 weeks for gastritis duodenitis
--- NOTE | 2021-04-09 09:43 | P.PCN ---
Date of Procedure: 04/09/21 Description of Procedure: PREOPERATIVE DIAGNOSIS: Personal history of colon polyps Colonoscopy screening POSTOPERATIVE DIAGNOSIS: Tubular adenoma hepatic flexure Tubular adenoma transverse colon Sigmoid diverticulosis Internal hemorrhoids, grade 2 OPERATION: Colonoscopy to the ileocecal valve and appendiceal orifice, cecum Colonoscopy with hot snare polypectomy Colonoscopy with cold forceps biopsy SURGEON: Jana Hart MD. ANESTHESIA: MAC. INDICATIONS: The patient is an 60-year-old female who presents personal history of colon polyps. Last colonoscopy over 5 years. Benefits and risks were described and informed consent was obtained. DESCRIPTION OF PROCEDURE: The patient had undergone Sutab prep. The patient had been brought into the operating room and laid in the left lateral decubitus position. After adequate intravenous sedation, the rectum was examined with 2% lidocaine jelly. The prostate was unremarkable. No large external hemorrhoids were encountered. The rectal tone was within normal limits. No lesions were palpated in the rectal vault. An Olympus colonoscope was advanced until the cecum, ileocecal valve and appendiceal orifice were clearly viewed. The prep was fair. Sigmoid diverticulosis was encountered. Colonic polyps were found and removed. No evidence of focal colitis was found. Retroflexion of the scope demonstrated grade 2 internal hemorrhoids without active bleeding or inflammation. The colon was desufflated. The patient had tolerated the procedure well. Withdrawal time was over 6 minutes. FINDINGS: Aronchick preparation quality scale 2 (1-5) Internal hemorrhoids, grade 2 External hemorrhoids, grade 1 No arteriovenous malformations. Sigmoid diverticulosis Removal of 2 polyps: - Snare polypectomy at proximal transverse colon, 8 mm tubulovillous adenoma polyp. - Cold forceps biopsy at hepatic flexure, 4 mm polyp. No focal colitis. RECOMMENDATIONS: 1. Repeat colonoscopy 3 years, 2023 Plan - Discharge Summary Discharge Rx Participant: No New Discharge Prescriptions: New Omeprazole [PriLOSEC] 40 mg PO DAILY #14 cap Continue Cyclobenzaprine [Flexeril] 10 mg PO Q8HR PRN PRN Reason: Muscle Spasm Cholecalciferol [Vitamin D3 (25 Mcg = 1000 Iu)] 2,000 unit PO DAILY Celecoxib [CeleBREX] 200 mg PO DAILY Fexofenadine HCl [Sobia Allergy] 180 mg PO DAILY Albuterol Sulfate [Proair Hfa] 1 - 2 puff INHALATION TID PRN PRN Reason: Shortness Of Breath Hydrocodone/Acetaminophen [[place] 7.5-325] 1 tab PO Q8HR PRN PRN Reason: Pain Aspirin [Adult Low Dose Aspirin EC] 81 mg PO DAILY Metoprolol Succinate (ER) [Toprol XL] 25 mg PO DAILY Atorvastatin [Lipitor] 40 mg PO HS Discharge Medication List Albuterol Sulfate [Proair Hfa] 1 - 2 puff INHALATION TID PRN 08/18/16 [History] Celecoxib [CeleBREX] 200 mg PO DAILY 08/18/16 [History] Cholecalciferol [Vitamin D3 (25 Mcg = 1000 Iu)] 2,000 unit PO DAILY 08/18/16 [History] Cyclobenzaprine [Flexeril] 10 mg PO Q8HR PRN 08/18/16 [History] Fexofenadine HCl [Sobia Allergy] 180 mg PO DAILY 08/18/16 [History] Hydrocodone/Acetaminophen [[place] 7.5-325] 1 tab PO Q8HR PRN 08/18/16 [History] Aspirin [Adult Low Dose Aspirin EC] 81 mg PO DAILY 03/27/21 [History] Atorvastatin [Lipitor] 40 mg PO HS 03/27/21 [History] Metoprolol Succinate (ER) [Toprol XL] 25 mg PO DAILY 03/27/21 [History] Omeprazole [PriLOSEC] 40 mg PO DAILY #14 cap 04/09/21 [Rx] Follow up Appointment(s)/Referral(s): Jana Hart MD [STAFF PHYSICIAN] - 04/21/21 4:45 pm Patient Instructions/Handouts: Gastritis (DC), Diverticulosis (GEN), Colorectal Polyps (DC), Diverticulosis Diet (GEN) Activity/Diet/Wound Care/Special Instructions: Repeat colonoscopy 3 years, 2023 Discharge Disposition: HOME SELF-CARE
== END 2021-04-09 10:12 | disposition home or self-care (01) ==
LOC: ORWHC2ENDO 07:57
PROVIDERS: ATTEND Surgery Plastic and Reconstructive Surgery
DX: Z12.11 Encounter for screening for malignant neoplasm of colon (principal); D12.3 Benign neoplasm of transverse colon; K31.89 Other diseases of stomach and duodenum; K29.70 Gastritis, unspecified, without bleeding; K29.80 Duodenitis without bleeding; K21.9 Gastro-esophageal reflux disease without esophagitis; K22.10 Ulcer of esophagus without bleeding; Z86.010 Personal history of colon polyps; K57.30 Diverticulosis of large intestine without perforation or abscess without bleeding; K64.1 Second degree hemorrhoids; K64.0 First degree hemorrhoids; J44.9 Chronic obstructive pulmonary disease, unspecified; M19.90 Unspecified osteoarthritis, unspecified site; G89.29 Other chronic pain; M54.9 Dorsalgia, unspecified; R06.02 Shortness of breath; R14.0 Abdominal distension (gaseous); F17.200 Nicotine dependence, unspecified, uncomplicated; Z96.643 Presence of artificial hip joint, bilateral; Z90.89 Acquired absence of other organs; Z98.890 Other specified postprocedural states; Z80.6 Family history of leukemia; Z79.82 Long term (current) use of aspirin; Z79.899 Other long term (current) drug therapy; Z91.041 Radiographic dye allergy status; Z91.013 Allergy to seafood; Z91.048 Other nonmedicinal substance allergy status; Z91.09 Other allergy status, other than to drugs and biological substances
CPT/HCPCS: 88305; 45380; 45385; 43239; J2001; J2704

== ENCOUNTER 2021-04-30 10:10 | Day surgery (SDC) | payer MEDICARE ==
[2021-04-29 09:56] VITALS: BMI 26.6
--- NOTE | 2021-04-30 09:02 | P.GSHP ---
History of Present Illness H&P Date: 04/30/21 CHIEF COMPLAINT: Cholecystitis HISTORY OF PRESENT ILLNESS: The patient is a 60-year-old female who presents with history of epigastric including right upper quadrant abdominal pain. She underwent diagnostic studies for her gallbladder. Separately her clinical picture was consistent with cholecystitis. Now she presents for surgical intervention. PAST MEDICAL HISTORY: Please see list PAST SURGICAL HISTORY: Please see list MEDICATIONS: Please see list ALLERGIES: Please see list SOCIAL HISTORY: Please see list FAMILY HISTORY: Please see list REVIEW OF ORGAN SYSTEMS: CONSTITUTIONAL: No reports of fevers or chills. HEENT: Denies any troubles with the vision or hearing. SKIN: No skin cancer. PHYSICAL EXAM: VITAL SIGNS: Afebrile vital signs stable GENERAL: Well-developed pleasant in no acute distress. HEENT: No scleral icterus. Extraocular movements grossly intact. Moist buccal mucosa. NECK: Supple without lymphadenopathy. CHEST: Unlabored respirations. Equal bilateral excursions. CARDIOVASCULAR: Regular rate regular rhythm rhythm. Distal 2+ pulses. ABDOMEN: Soft, nondistended. Tender along the epigastrium and right upper quadrant. MUSCULOSKELETAL: No clubbing, cyanosis, or edema. NEURO: Cranial nerves II to XII within normal limits. No focal or lateralizing signs. PSYCH: Alert and oriented to person, place and time. SKIN: Well-perfused good skin turgor. ASSESSMENT: 1. Epigastric and right upper quadrant abdominal pain 2. Chronic cholecystitis 3. Symptomatic gallstones. PLAN: 1. Will need a robotic cholecystectomy possible open. Benefits and risks were described. 2. Heparin for DVT prophylaxis 5000 units. 3. Antibiotic prophylaxis. Past Medical History Past Medical History: Asthma, COPD, GERD/Reflux, Osteoarthritis (OA) Additional Past Medical History / Comment(s): BACK PAIN, ENVIRONMENTAL ALLERGIES, HX OF VOCAL CORD POLYPS. History of Any Multi-Drug Resistant Organisms: None Reported Past Surgical History: Appendectomy, Back Surgery, Heart Catheterization, Joint Replacement, Orthopedic Surgery Additional Past Surgical History / Comment(s): SINUS SURGERY,RIGHT AND LEFT TOTAL HIP, CYST ON RIGHT OVARY-EXC, VOCAL CORD POLYP, RIGHT BUNIONECTOMY, LAPAROSCOPIC EXAM , LOWER BACK AND CERVICAL FUSION., HEART CATH 04/01/21 ([facility]) Past Anesthesia/Blood Transfusion Reactions: Motion Sickness, Postoperative Nausea & Vomiting (PONV) Past Psychological History: Anxiety, Depression Smoking Status: Current every day smoker Past Alcohol Use History: Occasional Additional Past Alcohol Use History / Comment(s): STARTED SMOKING AT AGE 19., SMOKES 1PPD Past Drug Use History: None Reported - Past Family History Mother Family Medical History: No Reported History Father Family Medical History: Cancer Additional Family Medical History / Comment(s): LEUKEMIA Medications and Allergies Home Medications Medication Instructions Recorded Confirmed Type Albuterol Sulfate [Proair Hfa] 1 - 2 puff INHALATION TID PRN 08/18/16 04/29/21 History Celecoxib [CeleBREX] 200 mg PO DAILY 08/18/16 04/29/21 History Cholecalciferol [Vitamin D3 (25 2,000 unit PO DAILY 08/18/16 04/29/21 History Mcg = 1000 Iu)] Cyclobenzaprine [Flexeril] 10 mg PO Q8HR PRN 08/18/16 04/29/21 History Fexofenadine HCl [Sobia Allergy] 180 mg PO DAILY 08/18/16 04/29/21 History Hydrocodone/Acetaminophen [[place] 1 tab PO Q8HR PRN 08/18/16 04/29/21 History 7.5-325] Omeprazole [PriLOSEC] 40 mg PO DAILY #14 cap 04/09/21 04/29/21 Rx Allergies Allergy/AdvReac Type Severity Reaction Status Date / Time adhesive tape Allergy Rash/Hives Verified 04/29/21 09:29 Iodinated Contrast Media Allergy FLUSHED,HOT Verified 04/29/21 09:29 [Iodinated Contrast Media - AND PASSED IV Dye] OUT iodine Allergy PER Verified 04/29/21 09:29 ALLERGY TEST nickel Allergy Rash/Hives Verified 04/29/21 09:29 shellfish derived [Shellfish] Allergy PER Verified 04/29/21 09:29 ALLERGY TEST NSAIDS (Non-Steroidal AdvReac Unknown stomach Verified 04/29/21 09:29 Anti-Inflamma "burning"
[~2021-04-30 10:10] MED LIST changes: +ACETAMINOPHEN TAB 500 MG TAB PO PRN; +DEXAMETHASONE SOD PHOSPHATE 10 MG/ML 1 ML VIAL IV PRN; +DEXAMETHASONE SOD PHOSPHATE 4 MG/ML 1 ML VIAL IV ONE; +GABAPENTIN 300 MG CAP PO PRN; +HEPARIN SODIUM,PORCINE/PF 5,000 UNIT/0.5 ML SYRINGE SQ PRN; +HYDROmorphone 0.5 MG/0.5 ML SYRINGE IVP PRN; +INDOCYANINE GREEN 25 MG VIAL IV PRN; -LIDOCAINE 1% (10MG/ML) FOR IV START INTRADERMA PRN; +ONDANSETRON 4 MG/2 ML VIAL IVP ONE; +diphenhydrAMINE 50 MG/ML 1 ML VIAL IVP PRN
[2021-04-30] MEDS ORDERED: ONDANSETRON 4 MG/2 ML VIAL ONE (10:22)
[2021-04-30 10:56] LABS: Basophils % (A) 0 %; Eosinophils # (A) 0.2 k/uL (0-0.7); Eosinophils % (A) 3 %; HCT 43.4 % (34.0-46.0); HGB 14.5 gm/dL (11.4-16.0); Lymphocytes % (A) 33 %; MCH 34.1 pg (25.0-35.0); MCHC 33.5 g/dL (31.0-37.0); MCV 101.7 fL (80.0-100.0); Mean Platelet Volume 7.2; Monocytes # (A) 0.3 k/uL (0-1.0); Monocytes % (A) 5 %; Neutrophils # (A) 3.4 k/uL (1.3-7.7); Neutrophils % (A) 56 %; Platelet Count 296 k/uL (150-450); RBC 4.26 m/uL (3.80-5.40); RDW 11.7 % (11.5-15.5)
[2021-04-30 11:22] LABS: ALT 11 U/L (4-34); AST 24 U/L (14-36); African American GFR (CKD) >90 (>60 ml/min/1.73 sqM); Albumin 4.5 g/dL (3.5-5.0); Alkaline Phosphatase 76 U/L (38-126); Anion Gap 7 mmol/L; Blood Urea Nitrogen 17 mg/dL (7-17); Calcium 9.8 mg/dL (8.4-10.2); Carbon Dioxide 27 mmol/L (22-30); Chloride 106 mmol/L (98-107); Glucose 97 mg/dL (74-99); Non-African American GFR(CKD) >90 (>60 ml/min/1.73 sqM); Potassium 4.7 mmol/L (3.5-5.1); Sodium 140 mmol/L (137-145); Total Bilirubin 0.4 mg/dL (0.2-1.3); Total Protein 6.9 g/dL (6.3-8.2)
[2021-04-30] MEDS ORDERED: HYDROmorphone (PF) 1 MG/ML ONE (11:48)
[2021-04-30] MEDS ORDERED: INDOCYANINE GREEN 25 MG VIAL IV ONE (11:48)
[2021-04-30] MEDS ORDERED: NEOSTIGMINE 1 MG/ML 10 ML VIAL ONE (11:48)
[2021-04-30] MEDS ORDERED: SUCCINYLCHOLINE CHLORIDE 100 MG/5 ML SYR IV ONE (11:48)
[2021-04-30] MEDS ORDERED: fentaNYL (PF) 50 MCG/ML 2 ML AMP ONE (11:48)
[2021-04-30] MEDS ORDERED: MIDAZOLAM 2 MG/2 ML VIAL ONE (11:48)
[2021-04-30] MEDS ORDERED: diphenhydrAMINE 50 MG/ML 1 ML VIAL ONE (11:48)
[2021-04-30] MEDS ORDERED: ePHEDrine SULFATE/0.9% NACL/PF 50 MG/5 ML SYRINGE IV ONE ×2 (11:48)
[2021-04-30] MEDS ORDERED: PHENYLEPHRINE-0.9% NACL SYG 1,000 MCG/10 ML SYRINGE ONE (11:48)
[2021-04-30] MEDS ORDERED: GLYCOPYRROLATE 0.2 MG/ML 2 ML VIAL ONE (11:48)
[2021-04-30] MEDS ORDERED: LIDOCAINE 1% INJ 10MG/ML (20 ML MDV) ONE (11:48)
[2021-04-30] MEDS ORDERED: ROCURONIUM 10 MG/ML (5 ML VIAL) IV ONE (11:48)
[2021-04-30] MEDS ORDERED: LIDOCAINE 0.5%-EPI 1:200,000 50 ML VIAL SQ ONE (12:20)
[2021-04-30] MEDS ORDERED: LACTATED RINGERS 1,000 ML IV ONE (12:45)
[2021-04-30] MEDS ORDERED: HYDROmorphone 1 MG/ML 1 ML SYRINGE IVP PRN (12:55)
[2021-04-30] MEDS ORDERED: HYDROcodone/APAP 7.5-325MG 1 EACH TAB PO PRN (12:55)
[2021-04-30] MEDS ORDERED: SIMETHICONE 80 MG CHEWABLE PO PRN (12:55)
--- NOTE | 2021-04-30 12:59 | P.OP ---
Date of Procedure: 04/30/21 Description of Procedure: SURGEON: JANA HART MD PREOPERATIVE DIAGNOSES: 1. Chronic cholecystitis with cholelithiasis 2. Chronic pain syndrome 3. Chronic obstructive pulmonary disease 4. Tobacco use 5. Gastroesophageal reflux disease 6. Generalized anxiety disorder 7. Depressive disorder POSTOPERATIVE DIAGNOSES: 1. Chronic cholecystitis with cholelithiasis 2. Chronic pain syndrome 3. Chronic obstructive pulmonary disease 4. Tobacco use 5. Gastroesophageal reflux disease 6. Generalized anxiety disorder 7. Depressive disorder 8. Severe peritoneal adhesions OPERATION: 1. Robotic-assisted da Gerald Xi laparoscopic lysis of adhesions 2. Robotic-assisted da Gerald Xi laparoscopic cholecystectomy, multiport with FIREFLY ESTIMATED BLOOD LOSS: 5 mL. SPECIMENS REMOVED: Gallbladder. COMPLICATIONS: None. OPERATIVE FINDINGS: 1. Moderate scarring over body and infundibulum of the gallbladder with peritoneal adhesions, pericholecystic with features of chronic cholecystitis 2. Severe right lower quadrant abdominal adhesions from prior open appendectomy INDICATIONS: The patient is a 60-year-old female who presents with symptomatic gallstones. Robotic assisted laparoscopic approach was described. Benefits and risks of the procedure including but not limited to bleeding, infection, injury to the biliary tree was described. Informed consent was obtained. DESCRIPTION OF PROCEDURE: Patient was brought to the operating room, placed in supine position. After general induction, the abdomen had been prepped and draped in standard sterile fashion. The robotic da Gerald XI system was primed. After a timeout protocol was performed, the patient had been prepped and draped in standard sterile fashion. The patient was injected with indocyanine green. A 5 mm 0 degrees laparoscopic trocar entry was performed along the left upper quadrant. The abdomen insufflated to 15 mmHg pressure which was tolerated well. Diagnostic laparoscopy demonstrated no injury to bowel viscera or mesentery. The liver surface was unremarkable. Next, two 8 mm robotic ports were placed along the right upper abdomen. The camera 8-mm port was maintained along the epigastrium. Another 8 mm port was placed along the left upper abdominal wall after exchanging the 5 mm port. Please note that the ports were placed at least 10 to 15 cm away from the target anatomy of the gallbladder. The robot was docked along the left lateral abdomen. The patient was repositioned in reverse Trendelenburg position. Using a grasper for arm 3, a grasper for arm 4, including hook cautery for arm 1, the robotic system was docked and primed as described. Instruments were interchanged by the assistant store leader including hook cautery, Bovie cautery and clip appliers. I had sat at the console. The gallbladder was scarred with peritoneal adhesions. Lysis of adhesions was performed to free the gallbladder from the surrounding tissues. Next attention was brought to the infundibulum and cystic structures. The infundibulum and cystic duct were dissected free from surrounding tissues. The cystic duct was isolated. FIREFLY was used to identify the cystic artery and cystic structures. A critical view of safety was obtained. Large PLASTIC clips were used throughout the entire case. Using a clip horse trekking guide, 2 clips were placed at the junction of the infundibulum and cystic duct. The cystic duct was divided between clips. Next, the cystic artery was similarly clipped and cauterized. Electro-Bovie cautery was used to remove the gallbladder from the hepatic fossa. Hemostasis was checked and found to be adequate. The robot was undocked. I re-scrubbed into the case. Using a 10 mm Endo Catch bag via the left upper quadrant incision, the specimen was removed from the abdominal cavity. All pneumoperitoneum instruments were evacuated from the abdominal cavity. The incisions were reapproximated using 4-0 Monocryl in an interrupted subcuticular fashion. Fascial defects were less than 8 mm in size. Please note along the trocar sites, local anesthetic was placed as a field block prior to insertion of all instruments. Liquid glue was applied to the skin. At the end of the procedure needle, sponge, and instrument count had been verified correct by the neurosurgical physician assistant. The patient was transferred to postanesthesia care unit in stable condition. Intraoperative films were shared with the patient's family. Plan - Discharge Summary Discharge Rx Participant: Yes New Discharge Prescriptions: New Simethicone [Gas-X] 125 mg PO AC-TID PRN #20 capsule PRN Reason: Pain Acetaminophen Tab [Tylenol Tab] 1,000 mg PO Q6HR PRN #30 tablet PRN Reason: Pain Continue Cyclobenzaprine [Flexeril] 10 mg PO Q8HR PRN PRN Reason: Muscle Spasm Cholecalciferol [Vitamin D3 (25 Mcg = 1000 Iu)] 2,000 unit PO DAILY Celecoxib [CeleBREX] 200 mg PO DAILY Fexofenadine HCl [Sobia Allergy] 180 mg PO DAILY Albuterol Sulfate [Proair Hfa] 1 - 2 puff INHALATION TID PRN PRN Reason: Shortness Of Breath Hydrocodone/Acetaminophen [[place] 7.5-325] 1 tab PO Q8HR PRN PRN Reason: Pain Omeprazole [PriLOSEC] 40 mg PO DAILY #14 cap Discharge Medication List Albuterol Sulfate [Proair Hfa] 1 - 2 puff INHALATION TID PRN 08/18/16 [History] Celecoxib [CeleBREX] 200 mg PO DAILY 08/18/16 [History] Cholecalciferol [Vitamin D3 (25 Mcg = 1000 Iu)] 2,000 unit PO DAILY 08/18/16 [History] Cyclobenzaprine [Flexeril] 10 mg PO Q8HR PRN 08/18/16 [History] Fexofenadine HCl [Sobia Allergy] 180 mg PO DAILY 08/18/16 [History] Hydrocodone/Acetaminophen [[place] 7.5-325] 1 tab PO Q8HR PRN 08/18/16 [History] Omeprazole [PriLOSEC] 40 mg PO DAILY #14 cap 04/09/21 [Rx] Acetaminophen Tab [Tylenol Tab] 1,000 mg PO Q6HR PRN #30 tablet 04/30/21 [Rx] Simethicone [Gas-X] 125 mg PO AC-TID PRN #20 capsule 04/30/21 [Rx] Follow up Appointment(s)/Referral(s): Jana Hart MD [STAFF PHYSICIAN] - 05/07/21 Patient Instructions/Handouts: *[facility] - Laparoscopic Cholecystectomy Discharge Instructions, Low Fat Diet (ED), *[facility] - Managing Your Pain After Surgery Without Opioids Activity/Diet/Wound Care/Special Instructions: Recommend low-fat diet for the next 2 days. No lifting over 10 pounds in 2 weeks until May 14. February shower. No bath tub soaks for two weeks until May 14. Diet as tolerated. Use Tylenol, simethicone scheduled for the next 24-48 hours for best pain relief. Use ice along incisions for today to prevent swelling. Discharge Disposition: HOME SELF-CARE
[2021-04-30 13:02] VITALS: TEMP 97
[2021-04-30 13:55] VITALS: RESP 16
[2021-04-30 15:08] VITALS: BP 133/75; PULSE 62
== END 2021-04-30 16:10 | disposition home or self-care (01) ==
LOC: OR 10:10
PROVIDERS: ATTEND Surgery Plastic and Reconstructive Surgery
DX: K81.1 Chronic cholecystitis (principal); J44.9 Chronic obstructive pulmonary disease, unspecified; K66.0 Peritoneal adhesions (postprocedural) (postinfection); M19.90 Unspecified osteoarthritis, unspecified site; K21.9 Gastro-esophageal reflux disease without esophagitis; F41.1 Generalized anxiety disorder; M54.9 Dorsalgia, unspecified; Z90.89 Acquired absence of other organs; Z98.890 Other specified postprocedural states; Z96.642 Presence of left artificial hip joint; G89.4 Chronic pain syndrome; Z98.1 Arthrodesis status; F41.9 Anxiety disorder, unspecified; F32.9 Major depressive disorder, single episode, unspecified; F17.210 Nicotine dependence, cigarettes, uncomplicated; Z80.6 Family history of leukemia; Z79.899 Other long term (current) drug therapy; Z88.6 Allergy status to analgesic agent; Z91.041 Radiographic dye allergy status; Z91.013 Allergy to seafood; Z91.048 Other nonmedicinal substance allergy status; Z91.09 Other allergy status, other than to drugs and biological substances
CPT/HCPCS: 47563; 93005; 88304; 80053; 85025; J2250; J1200; J1100; J2710; J0690; J2405; J2001; J3010; J1170; J2370; J0330; J1644

== ENCOUNTER → 2021-10-20 | Outpatient (CLI) | payer MEDICARE ==
--- NOTE | 2021-10-21 01:45 | MR ---
EXAMINATION TYPE: MR cervical spine wo/w con DATE OF EXAM: 10/20/2021 COMPARISON: 11/17/2018 HISTORY: Post laminectomy sydrome CONTRAST: Standard multiplanar, multisequence MRI departmental protocol images were obtained without contrast a nd with 7 mL intravenous Gadavist gadolinium contrast. Cervical vertebra have normal alignment. There is some disc space narrowing at C3-4 and C5-6. There i s anterior fusion surgery with metal artifact from C3 to C6. Cervical spinal cord shows no edema. The re is mild narrowing of the spinal canal to 8.2 mm at the C5-6 level. This is the narrowest point. Th e brainstem is intact. Cerebellum is intact. There is no compression fracture. The contrast images show no pathologic enhancement IMPRESSION: Multilevel fusion surgery. Normal cervical spinal cord. There is improvement in the spinal stenosis a t C3-4 and C5-C6 compared to preoperative exam of 11/17/2018. There was 6.5 mm spinal stenosis at C3-4 and 7 mm narrowing at C5-6 with disc herniations which are significantly improved.
== END | disposition home or self-care (01) ==
LOC: RADMRIMAIN 09:11
PROVIDERS: ATTEND Physical Medicine & Rehabilitation
DX: M48.02 Spinal stenosis, cervical region (principal); M50.21 Other cervical disc displacement, high cervical region; Z98.1 Arthrodesis status
CPT/HCPCS: 72156; A9585

== ENCOUNTER → 2021-11-26 | Outpatient (CLI) | payer MEDICARE ==
[2021-11-26 10:30] VITALS: BP 147/78; PULSE 81; RESP 16; TEMP 98.2
--- NOTE | 2021-11-26 10:40 | P.CON ---
Consult Note - . Consult date: 11/26/21 Assessment/Plan:: HISTORY OF PRESENT ILLNESS: 61 -year-old female as a referral from Dr. Silva presents today with neck pain due to disc herniations, spinal stenosis and facet arthropathy for evaluation. states her pain level axes and wanes in intensity but is currently at 5 out of 10 in intensity, dull and achy in the cervical spine area with accompanying stiffness in the right trapezius and numbness on the left upper extremity hand. Pain can escalate as high as 10 out of 10 with burning pain to the bilateral shoulders with lifting and hyperextension of the neck. Pain is relieved with medications, topicals, heat, physical therapy in the past, chiropractic treatment and past, home exercise regimen, TENS unit, Epsom salt baths, repositioning and rest. PMH: Asthma, osteoarthritis PSH: ACDF C3 through C5 2 years ago, lumbar fusion L2- L4 and L4- L5, left carpal tunnel release, bilateral YOLANDA SH: Daily tobacco user. Occasional EtOH use. No illicit drug use. She admits to a physically active daily lifestyle. Currently on SSI. FH: Hypertension, diabetes All: See list Meds: See list REVIEW OF ORGAN SYSTEMS: CONSTITUTIONAL: No fevers or chills. No recent weight loss. HEENT: No visual acuity loss, eye pain, difficulties with hearing. No nosebleeds. No difficulty swallowing. RESPIRATORY: Denies any troubles with breathing or dyspnea on exertion. CARDIOVASCULAR: Denies any chest pain, palpitations, or recent heart attacks. GASTROINTESTINAL: Denies fatty food intolerance. Has change in bowel habits and gas bloat. GENITOURINARY: Denies any blood in urine. Has increased urinary frequency. NEUROLOGICAL: + numbness and tingling along the distal extremities. No seizure disorders or headaches. MUSCULOSKELETAL: + back pain SKIN: No skin cancer. No rash. PSYCHIATRIC: Denies current depression or suicidal thoughts. ENDOCRINE: Denies current thyroid disorders. Denies any blood sugar glucose intolerance. HEME/LYMPHATIC: Denies any lumps and bumps around the neck. History of deep venous thrombosis. ALLERGY/IMMUNOLOGY: No immunoglobulin therapy. No immune deficiencies. BREAST: Denies current breast lumps, pain or nipple discharge. Physical Examinations : Constitutional : Cooperative , not in acute distress . HEENT: Neck supple. No Lymphadenopathy. Normal thyroid size . Eyes no ptosis , no icterus, no photophobia . Hearing intact. Normal oropharynx. No Thrush. Respiratory : Chest clear to auscultations bilaterally. No wheezing. No rhonchi. Cardiovascular : Regular rate and rhythm , S1 / S2. No S3 . No S4. Gastrointestinal : Abdomen soft. No tenderness. Bowel sounds x 4. No organomegaly . Genitourinary : Deferred. Neurologic : Cranial nerve II to XII intact. No focal neurological deficits. Psychiatric : alert & oriented x 3. Matching mood & appropriate affect. Judgment & insight intact. Lymphatic No Lymphadenopathy. Musculoskeletal : Cervical Spine Motor strength in the deltoid and biceps: Normal right side. Normal Left side Motor strength biceps and the wrist extensors: Normal right side . Normal left side Motor strength in the triceps muscle: Normal right side. Normal left side Deep tendon reflexes: Normal at the biceps. Normal at Brachioradialis. Normal at triceps Cervical facet loading test: positive over left C7-T1 with accompanying paraspinal muscle spasms Spurling test: positive bilaterally Neck distraction test: positive Susan sign: positive bilaterally Lumbar spine Motor strength lower extremities ,thigh and legs 5/5 Right side , 5/5 Left side Deep tendon reflexes : Normal Knee Jerk. Normal Ankle Jerk Vertebral body tenderness over Lumbar facet Loading Test: positive Right / positive Left Range of motion of the lumbar spine Flexion 30 degrees, extension 10 degrees Straight Leg Raise test: Left/ Right positive at degree Lucio test: positive right / positive left. Severe tenderness over the Sacroiliac joint on the Right / Left sides Gaenslen test: positive bilaterally Seated flexion test: positive bilaterally. Imaging: MRI of the cervical spine from 10/20/21 reviewed EMG of the upper extremities from 11/02/21 reviewed Assessment/ Plan : Recommendation of left interlaminar laminar C7-T1 CORINE May need a series of 2 based on treatment response Risks, benefits of procedure discussed and patient verbalized understanding. Denies aspirin or anti- coagulant use. All questions answered. I have spent greater than 50 minutes on patient care today. Dr Armstrong was available by phone for the evaluation of this patient. The time was used to review the medical records including relevant urine studies and Prescription history (MAPs), review of the available imaging, evaluation and examination of the patient, coordination of care with the medical staff and if applicable referring physicians, as well as creation of the medical record PQRS Measure Charge Sheet Mode of Arrival: Ambulatory - Pain Location Neck Non-Pharmacological Interventions: Chiropractic Treatment, Heat, Home Exercise, Inactivity, Physical Therapy, Position/Reposition, Relaxation Technique, Stretching, TENS Unit Pharmacological Interventions: Medication, PRN Medication, Topical Medication PQRS Narrative: Smoking Status Current every day smoker Blood Pressure 147/78 Pain Intensity [Neck] 5 Scale Used Numeric (1 - 10) Hx Alcohol Use (MH) No Home Medications: Ambulatory Orders Albuterol Sulfate [Proair Hfa] 1 - 2 puff INHALATION TID PRN 08/18/16 Celecoxib [CeleBREX] 200 mg PO DAILY 08/18/16 Cholecalciferol [Vitamin D3 (25 Mcg = 1000 Iu)] 1,000 unit PO DAILY 08/18/16 Cyclobenzaprine [Flexeril] 10 mg PO Q8HR PRN 08/18/16 Fexofenadine HCl [Sobia Allergy] 180 mg PO DAILY 08/18/16 Hydrocodone/Acetaminophen [[place] 7.5-325] 1 tab PO Q8HR PRN 08/18/16 Acetaminophen Tab [Tylenol Tab] 1,000 mg PO Q6HR PRN #30 tablet 04/30/21
== END ==
LOC: PNWHC3 09:54
PROVIDERS: ATTEND Physician Assistant Medical
DX: M50.20 Other cervical disc displacement, unspecified cervical region (principal); M48.02 Spinal stenosis, cervical region; M47.812 Spondylosis without myelopathy or radiculopathy, cervical region; J45.909 Unspecified asthma, uncomplicated; M19.90 Unspecified osteoarthritis, unspecified site; F17.200 Nicotine dependence, unspecified, uncomplicated
CPT/HCPCS: 99211

== ENCOUNTER 2021-12-29 07:19 | Day surgery (SDC) | payer MEDICARE ==
[2021-12-25 14:32] VITALS: BMI 24.5
[~2021-12-29 07:19] MED LIST changes: -ACETAMINOPHEN TAB 500 MG TAB PO PRN; -DEXAMETHASONE SOD PHOSPHATE 10 MG/ML 1 ML VIAL IV PRN; -DEXAMETHASONE SOD PHOSPHATE 4 MG/ML 1 ML VIAL IV ONE; -GABAPENTIN 300 MG CAP PO PRN; -HEPARIN SODIUM,PORCINE/PF 5,000 UNIT/0.5 ML SYRINGE SQ PRN; -HYDROmorphone 0.5 MG/0.5 ML SYRINGE IVP PRN; -INDOCYANINE GREEN 25 MG VIAL IV PRN; +LIDOCAINE 1% (10MG/ML) FOR IV START INTRADERMA PRN; -ONDANSETRON 4 MG/2 ML VIAL IVP ONE; -diphenhydrAMINE 50 MG/ML 1 ML VIAL IVP PRN
[2021-12-29 08:00] VITALS: TEMP 97
[2021-12-29] MEDS ORDERED: IOPAMIDOL M200 10 ML VIAL ONE (08:42)
[2021-12-29] MEDS ORDERED: DEXAMETHASONE SOD PHOSPHATE 10 MG/ML 1 ML VIAL ONE (08:42)
[2021-12-29] MEDS ORDERED: LACTATED RINGERS 1,000 ML IV SCH (08:45)
--- NOTE | 2021-12-29 09:15 | P.PCN ---
Date of Procedure: 12/29/21 Description of Procedure: Pre- and Post-operative Diagnosis: Cervical radiculopathy Procedure: C7-T1 Inter-Laminar Cervical Epidural Steroid Injection under biplanar fluoroscopy Surgeon: Nacho Pisano Anesthesia: Local: 1% Lidocaine, IV sedation : None. Complications: None. Estimated blood loss: None Specimens removed: None Fluoroscopic image: saved to electronic medical records. Indications for Procedure: The patient has been suffering from neck pain and pain radiating to the upper extremity . Inadequate pain control with pharmacologic regimen. An inter-laminar approach cervical epidural steroid injection was scheduled for the patient. Procedure and Findings: The patient was seen and examined in the holding area. The written informed consent was obtained after explaining the risks, benefits, alternatives of the procedure to the patient. The patient was brought to the procedure room and was placed in the prone position on the operating table. A pillow was placed under the upper chest. Standard anesthesia monitoring was done through out the procedure. Timeout was completed. The skin preparation was done with ChloraPrep 1 and draping was done in usual sterile fashion. Sterile technique was observed throughout the procedure. Under fluoroscopic guidance, the C7-T1 inter-laminar space was identified. 3 ml of 1% Lidocaine was injected with a 25 gauge needle to achieve adequate local anesthesia of the skin and subcutaneous tissue. A 20 gauge, 3.5 inch Tuohy type epidural needle was placed and gradually advanced up to the epidural space using loss of resistance technique and fluoroscopic guidance. Lateral, oblique fluoros copic views confirm the needle position. No paresthesia was noted. No contrast injected as patient is ALLERGIC to IVP dye. After negative aspiration for blood, fluids. A total of 6 ml solution containing 20 mg Dexamethasone, and 4 ml preservative-free Normal Saline was injected slowly with intermittent aspiration. The needle was removed intact, area was cleaned and bandage was applied. Disposition : The patient tolerated the procedure very well. The patient was transferred to the recovery room and remained stable until discharged home. The patient was given detailed discharge instructions for bleeding, infection, increased pain at the injection site, and was advised to seek immediate medical attention should significant side effects develop. The patient will be followed up with our [facility] within 4 weeks for follow-up visit.
[2021-12-29 09:22] VITALS: RESP 18
--- NOTE | 2021-12-29 09:30 | FL ---
EXAMINATION TYPE: FL guided pain mgmt statistic DATE OF EXAM: 12/29/2021 CLINICAL HISTORY: Neck pain. TECHNIQUE: Fluoroscopy. COMPARISON: None. FINDINGS: Fluoroscopic guidance was provided during pain relief procedure performed by Dr. Velarde . A total of 23 seconds of fluoroscopic time was utilized during the procedure and 3 spot images are acquired. Images acquired shows needle localization at C7 level. Anterior fusion plate above this le jose luis in the cervical spine is noted. IMPRESSION: As Above.
[2021-12-29 09:48] VITALS: BP 114/74; PULSE 67
== END 2021-12-29 09:52 | disposition home or self-care (01) ==
LOC: ORPAIN 07:19
DX: M54.12 Radiculopathy, cervical region (principal); Z90.49 Acquired absence of other specified parts of digestive tract; Z96.643 Presence of artificial hip joint, bilateral; Z98.890 Other specified postprocedural states; Z88.6 Allergy status to analgesic agent; Z88.5 Allergy status to narcotic agent; Z91.013 Allergy to seafood; Z91.09 Other allergy status, other than to drugs and biological substances
CPT/HCPCS: 62321; J1100; Q9966

== ENCOUNTER → 2022-01-18 | Outpatient (CLI) | payer MEDICARE ==
[2022-01-18 08:50] VITALS: BP 107/7; PULSE 69; RESP 18; TEMP 98.2
--- NOTE | 2022-01-18 08:53 | P.PN ---
Subjective Progress Note Date: 01/18/22 Principal diagnosis: A 61 yr old female with a history of severe and chronic neck pain secondary to cervical degenerative disc diseases and spondylosis with facet arthropathy presents today for evaluation s/p L interlaminar RAVINDER C7-T1 #1. Patient states she experienced 50% pain relief status post procedure. Pain level is currently at 4 out of 10 in intensity, tight, constant, achy in the left aspect of the cervical spine that she has been experiencing for years. Patient denies radiation of pain. Pain is provoked by repetitive UE movements. Pain is alleviated with medications, heat, PT years ago, home exercise & stretching regimen and rest. Pt also states she has been having LESI at Dr Silva's office every 3 - 4 months Interventional pain procedures completed include RAVINDER L interlaminar C7-T1 #[address] and [address] Dr Silva's office Patient is currently on [place] 5/325mg Patient denies any side effects of the medication(s), denies excessive drowsiness or sleepiness, denies suicidal ideation and reports that the current pain medication is helping to control the pain and improve activities of daily living. Patient denies any motor or sensory deficits. Patient denies any fever or night sweats, denies any change in the bowel movements or urination. Physical Examination: -Constitutional: Cooperative. Not in acute distress . -HEENT: Neck is supple. No lymphadenopathy. No thyromegaly. Normal thyroid size. Eyes: No ptosis , no icterus, no photophobia. ENT: No auditory deficits. Normal oropharynx. No Thrush. - Respiratory: Chest clear to auscultations bilaterally. No wheezing. No rhonchi. - Cardiovascular: Regular rate and rhythm. S1 / S2 , no S3 , no S4. - Gastrointestinal: Abdomen soft no tenderness. Bowel sounds positive in all four quadrants. No organomegaly. - Genitourinary: Deferred. - Neurologic: Cranial nerve II to XII intact. No focal neurological deficits. - Psychatric: Alert & oriented x 3. Matching mood & appropriate affect. Judgment and insight intact. - Lymphatic: No Lymphadenopathy. - Musculoskeletal: Cervical spine: Muscle bulk/ tone/ strength in the bilateral upper extremities normal. L sided paraspinal TTP with +Spurling test Facet loading test cervical area positive. Lumbar spine: Motor bulk/ tone/ strength lower extremities , thigh and legs : 5/5 Deep tendon reflexes : Normal Knee Jerk. Normal Ankle Jerk . Vertebral body tenderness to palpation over Lumbar Facet Loading Test positive Straight Leg Raise: positive at 30 degrees right side/ left side Gaenslen's Test positive Sacral spine : Severe tenderness over the Sacroiliac joint: right side / left side Range of motion: Flexion of the lumbar spine <60 degrees Range of motion: Extension of the lumbar spine <20 degrees Gaenslen's Test positive Lucio test: positive right side / left side Assessment and plan: Chronic neck pain secondary to cervical degenerative disc disease , spondylosis with facet arthropathy without myelopathy Recommendation of RAVINDER L interlaminar C7-T1 #2. Risks, benefits of procedure discussed and pt verbalized understanding. Denies anticoagulant use. Denies medical history of diabetes. Will limit injections of C spine to a series of 2 in light of pt receiving LESIs at an outside facility. All patient questions answered MAPS reviewed and it was appropriate. I have spent 31 minutes on patient care today. Dr Armstrong was available by phone for the evaluation of this patient. The time was used to review the m edical records including relevant urine studies and Prescription history (MAPs), review of the available imaging, evaluation and examination of the patient, coordination of care with the medical staff and if applicable referring physicians, as well as creation of the medical record PQRS Measure Charge Sheet Mode of Arrival: Ambulatory - Pain Location Neck Non-Pharmacological Interventions: Heat, Inactivity Pharmacological Interventions: PRN Medication PQRS Narrative: Smoking Status Current every day smoker Blood Pressure 107/7 Pain Intensity [Neck] 4 Scale Used Numeric (1 - 10) Hx Alcohol Use (MH) No Home Medications: Ambulatory Orders Albuterol Sulfate [Proair Hfa] 1 - 2 puff INHALATION TID PRN 08/18/16 Celecoxib [CeleBREX] 200 mg PO DAILY 08/18/16 Cholecalciferol [Vitamin D3 (25 Mcg = 1000 Iu)] 1,000 unit PO DAILY 08/18/16 Cyclobenzaprine [Flexeril] 10 mg PO Q8HR PRN 08/18/16 Fexofenadine HCl [Sobia Allergy] 180 mg PO DAILY 08/18/16 Hydrocodone/Acetaminophen [[place] 7.5-325] 1 tab PO Q8HR PRN 08/18/16 Acetaminophen Tab [Tylenol Tab] 1,000 mg PO Q6HR PRN #30 tablet 04/30/21
== END ==
LOC: PNWHC3 08:00
PROVIDERS: ATTEND Specialist
DX: M50.30 Other cervical disc degeneration, unspecified cervical region (principal); M47.812 Spondylosis without myelopathy or radiculopathy, cervical region; G89.29 Other chronic pain; F17.200 Nicotine dependence, unspecified, uncomplicated; Z91.048 Other nonmedicinal substance allergy status; Z91.041 Radiographic dye allergy status; Z88.9 Allergy status to unspecified drugs, medicaments and biological substances; Z91.013 Allergy to seafood; Z88.6 Allergy status to analgesic agent
CPT/HCPCS: 99211

== ENCOUNTER → 2022-04-19 | Outpatient (CLI) | payer MEDICARE ==
--- NOTE | 2022-04-19 12:08 | CTL ---
EXAMINATION TYPE: CT Low Dose Lung DATE OF EXAM ORDERED: 04/19/2022 HISTORY: . Lung cancer screening CT DLP: 80.[address] CTDI: 2.10 mGy Automated exposure control for dose reduction was used. SCREENING VISIT: COMPARISON: 08/24/2019 TECHNIQUE: Low dose computed tomography scan was performed through the chest at 1 mm thick sections a nd reconstructed images in multiple planes at 1 mm and [address] DIAGNOSTIC QUALITY: Satisfactory FINDINGS: Heart normal size with trace anterior basilar pericardial fluid. Aorta normal caliber with convention al arch vessel branching anatomy. Scattered nonenlarged mediastinal lymph nodes. No thoracic lymphadenopathy by CT size criteria. Mild diffuse bronchial wall thickening and mild centrilobular emphysema. No consolidation or pleural effus ion. Some strandy atelectasis anterior medial right mid to lower lung. Mild biapical pleural-parenchymal scarring. There is a stable 3 mm right upper lobe pulmonary nodule. There now is a 2 mm subpleural nodule right upper lobe stable. Subsegmental changes seen anteriorly within the left lung. Most typical atelectasis. There is a 7 mm nodule anterior segment left lower lo be could be postinflammatory. Neoplastic process is not excluded Visualized upper abdomen shows partially calcified low-density mass of the right adrenal gland measur ing 2.3 cm, probable pseudocyst. The possibility of other mass not excluded at this time. Nonobstruct ing left renal calculus may be cortical Bones: Mild degenerative disc disease throughout the thoracic spine. Postsurgical changes noted. IMPRESSION: 1. LungRADS 3-there is a 7 mm nodule anterior segment left lower lobe. Recommend 6 month follow-up CT scan. 2. COPD\emphysema. 3. Partially calcified 2.3 cm lesion within the right adrenal gland. Possible adrenal pseudocyst from prior hemorrhage. A partially calcified mass is not excluded at this time. Findings stable from prio r exam. CT LUNG RAD AND CT CHEST RECOMMENDATION: 1. Six-month follow-up low-dose lung cancer screening CT of the chest. 2. Smoking cessation. CT LUNG RAD: Lung-Rad 3 Probably Benign Appearance or Behavior
--- NOTE | 2022-04-19 14:11 | BD ---
EXAMINATION TYPE: Axial Bone Density DATE OF EXAM: 04/19/2022 COMPARISON: 08/12/2017 CLINICAL HISTORY: 61 years year old Female. ICD-10 CODE: Z78.0 POST MENOPAUSAL WITHOUT HRT Height: 66 IN Weight: 159 LBS FRAX RISK QUESTIONS: Current Tobacco Use: YES RISK FACTORS HISTORY OF: Surgery to Spine/Hip([place]): L-SPINE SURGERY AGE 49; [place] HIP REPLACEMENTS AGE 46 APPROX Diet low in dairy products/other sources of calcium: YES Postmenopausal woman: AGE 49 MEDICATIONS: Additional Medications: VIT D, HYDROCODONE, HOLLY, INHALER, CELEBREX, EXAM MEASUREMENTS: Bone mineral densitometry was performed using the Delphi System. PT HAD L SPINE SURGERY [facility] AGE 49 PT HAD [place] HIP REPLACEMENTS APPROX AGE 46 Bone mineral density about the L Wrist (g/cm2): 0.583 T Score values are as follows: -----Dist. R+U: -2.0 -----Prox. R+U: -1.0 -----Radius total: -1.5 Bone mineral density has: Decreased -9.3% since study of: 08/12/2017 IMPRESSION: Osteopenia (T Score between -2.5 and -1). There is slightly increased risk of fracture and the patient may be considered for treatment. Re-Screen 2-5 years. NOTE: T-SCORE=SD OF THE YOUNG ADULT MEAN.
== END | disposition home or self-care (01) ==
LOC: RADBDWWP 10:51
PROVIDERS: ATTEND Family Medicine
DX: Z12.2 Encounter for screening for malignant neoplasm of respiratory organs (principal); F17.210 Nicotine dependence, cigarettes, uncomplicated; J44.9 Chronic obstructive pulmonary disease, unspecified; R91.1 Solitary pulmonary nodule; M85.89 Other specified disorders of bone density and structure, multiple sites
CPT/HCPCS: 71271; 77080

== ENCOUNTER → 2022-10-22 | Outpatient (CLI) | payer MEDICARE ==
--- NOTE | 2022-10-25 10:22 | MM ---
Reason for Exam: Screening (asymptomatic). Last screening mammogram was performed 12 month(s) ago. Patient History: Menarche at age 12. Patient has no children. Postmenopausal. Patient used Hormonal Contraceptives for 4 years. 09/21/2006, Benign Core Biopsy on the right side. Mother had breast cancer, bilateral, age 79. Risk Values: Carlita 5 year model risk: 3.8%. NCI Lifetime model risk: 17.2%. Prior Study Comparison: 05/25/2019 Bilateral Screening Mammogram, [facility]. 08/22/2020 Bilateral Screening Mammogram, [facility]. 10/12/2021 Bilateral Screening Mammogram, [facility]. Tissue Density: The breast tissue is extremely dense which could obscure a lesion on mammography. Findings: Analyzed By CAD. Pattern appears symmetrical and stable. A few scattered benign punctate calcifications are present. No suspicious groups of microcalcifications, spiculated or lobular masses, architectural distortion or other secondary signs of malignancy are mammographically apparent. Overall Assessment: Benign, BI-RAD 2 Management: Screening Mammogram of both breasts in 1 year. A negative mammogram report should not preclude additional follow up of suspicious palpable abnormalities. Patient should continue monthly self breast exam. A clinical breast exam by your physician is recommended on an annual basis and results should be correlated with mammographic findings. Electronically signed and approved by: Gucci Buchanan D.O. Radiologis
== END | disposition home or self-care (01) ==
LOC: RADMAMWWP 14:55
PROVIDERS: ATTEND Family Medicine
DX: Z12.31 Encounter for screening mammogram for malignant neoplasm of breast (principal); Z78.0 Asymptomatic menopausal state; Z80.3 Family history of malignant neoplasm of breast
CPT/HCPCS: 77063; 77067

== ENCOUNTER → 2022-10-27 | Outpatient (CLI) | payer MEDICARE ==
--- NOTE | 2022-10-27 15:18 | CTL ---
EXAMINATION TYPE: CT Low Dose Lung DATE OF EXAM ORDERED: 10/27/2022 HISTORY: 62-year-old female R91.1, Z87.891. Lung cancer screening. Personal history of tobacco use. C urrent smoker with 44 pack-year history. CT DLP: 90.[address] CTDI: 2.4 mGy Automated exposure control for dose reduction was used. SCREENING VISIT: 8 month follow-up COMPARISON: 04/19/2022 TECHNIQUE: Low dose computed tomography scan was performed through the chest with coronal and sagitta l reconstructions. CT DIAGNOSTIC QUALITY: Satisfactory FINDINGS: Heart normal size without pericardial effusion. Aorta normal caliber with conventional arch vessel branching anatomy. Scattered nonenlarged mediastinal lymph nodes. No thoracic lymphadenopathy by CT size criteria. Mild diffuse bronchial wall thickening. [id number] centrilobular emphysema. Minimal biapical pl eural parenchymal scarring. Stable 3 mm peripheral right upper lobe pulmonary nodule, axial image 67. Increasing focal nodularity inferior lingula measuring 1.5 cm, axial image 251 versus 1.1 cm, previou sly. However, nodular atelectasis remains favored over neoplastic nodule at this time. Additional fol low-up recommended. No new suspicious pulmonary nodules are otherwise seen. No consolidation or pleural effusion. Visualized upper abdomen shows partially calcified cystic appearing 2.3 cm right adrenal mass, unchan ged, probable pseudocyst relating to prior trauma/hemorrhage. Bones: Moderate degenerative disc disease mid thoracic spine. Also on the visualized upper lumbar spi ne. Partially visualized posterior lumbar fusion hardware. IMPRESSION: 1. LungRADS 3, probably benign. While there is an enlarging nodular density in the inferior lingula c urrently at 1.5 cm versus 1.1 cm 8 months ago, an area of nodular atelectasis remains favored over ne oplasm. Ongoing 6 month follow-up low-dose CT recommended. 2. COPD with mild to moderate emphysema. Recommend smoking cessation. 3. Stable partially calcified 2.3 cm lesion right adrenal gland. Possible pseudocyst from prior hemor rhage/trauma. CT LUNG RAD AND CT CHEST RECOMMENDATION: Lung-Rad 3 Probably Benign: 6 month follow-up LDCT. S Modifier (other clinically significant findings): None
== END | disposition home or self-care (01) ==
LOC: RADCTMAIN 11:24
PROVIDERS: ATTEND Family Medicine
DX: Z12.2 Encounter for screening for malignant neoplasm of respiratory organs (principal); F17.210 Nicotine dependence, cigarettes, uncomplicated; J43.9 Emphysema, unspecified; J98.4 Other disorders of lung; R91.1 Solitary pulmonary nodule; J98.11 Atelectasis
CPT/HCPCS: 71271

== ENCOUNTER → 2023-04-27 | Outpatient (CLI) | payer MEDICARE ==
--- NOTE | 2023-04-27 10:44 | CTL ---
EXAMINATION TYPE: CT Low Dose Lung DATE OF EXAM ORDERED: 04/27/2023 HISTORY: 62-year-old female R91.1. Current smoker with 44 pack-year history. Lung cancer screening CT DLP: 89.[address] CTDI: 2.4 mGy Automated exposure control for dose reduction was used. SCREENING VISIT: Six-month follow-up COMPARISON: 10/27/2022. Also, abdomen from 04/08/2021. TECHNIQUE: Low dose computed tomography scan was performed through the chest with coronal and sagitta l reconstructions. CT DIAGNOSTIC QUALITY: Satisfactory FINDINGS: The heart is normal size without pericardial effusion. Aorta normal caliber with conventional arch vessel branching anatomy. No thoracic lymphadenopathy by CT size criteria. Mild emphysematous change. Mild bronchial wall thickening. No consolidation or pleural effusion. A 4 mm lateral right upper lobe pulmonary nodule remains unchanged. A focal opacity at the inferior lingula remains unchanged. Visualized upper abdomen show similar dense calcification right adrenal gland measuring up to 2.0 cm. Partially visualized punctate 2 mm nonobstructive left renal calculus. Bones: Posterior lumbar fusion hardware L2 extending down in the field of view. Mild degenerative dis c disease midthoracic spine. IMPRESSION: 1. LungRADS 2, benign. Stable focal opacity at the inferior lingula compatible with atelectasis or sc arring. 2. COPD with mild emphysema. Recommend smoking cessation. CT LUNG RAD AND CT CHEST RECOMMENDATION: Lung-Rad 2 Benign Appearance or Behavior: Continue annual sc reening with LDCT in 12 months. S Modifier (other clinically significant findings): None
== END | disposition home or self-care (01) ==
LOC: RADCTMAIN 08:28
PROVIDERS: ATTEND Family Medicine
DX: Z12.2 Encounter for screening for malignant neoplasm of respiratory organs (principal); F17.210 Nicotine dependence, cigarettes, uncomplicated; J43.9 Emphysema, unspecified; R91.8 Other nonspecific abnormal finding of lung field
CPT/HCPCS: 71271

== ENCOUNTER → 2023-11-11 | Outpatient (CLI) | payer MEDICARE ==
--- NOTE | 2023-11-15 10:27 | MM ---
Reason for Exam: Screening (asymptomatic). Last mammogram was performed 1 year(s) and 1 month(s) ago. Patient History: Menarche at age 12. Patient has no children. Postmenopausal. Patient used Hormonal Contraceptives for 4 years. 09/21/2006, Benign Core Biopsy on the right side. Mother had breast cancer, bilateral, age 79. Risk Values: Carlita 5 year model risk: 3.9%. NCI Lifetime model risk: 16.7%. Prior Study Comparison: 03/30/2018 Bilateral Screening Mammogram, [facility]. 04/10/2018 Left Diagnostic Mammogram, [facility]. 10/25/2018 Left Diagnostic Mammogram, [facility]. 05/25/2019 Bilateral Screening Mammogram, [facility]. 08/22/2020 Bilateral Screening Mammogram, [facility]. 10/12/2021 Bilateral Screening Mammogram, [facility]. 10/22/2022 Bilateral MG 3D screening mammo w/cad, [facility]. Tissue Density: The breast tissue is heterogeneously dense. This may lower the sensitivity of mammography. Findings: Analyzed By CAD. There is no suspicious group of microcalcifications or new suspicious mass in either breast. Overall Assessment: Benign, BI-RAD 2 Management: Screening Mammogram of both breasts in 1 year. . Patient should continue monthly self-breast exams. A clinical breast exam by your physician is recommended on an annual basis. This exam should not preclude additional follow-up of suspicious palpable abnormalities. Note on Carlita scores and lifetime risk: 1. A Carlita score greater than 3% is considered moderate risk. If this is the case, consider specialist referral to assess eligibility for a risk reducing agent. 2. If overall lifetime risk for the development of breast cancer is 20% or higher, the patient may qualify for future screening with alternating mammogram and breast MRI. Electronically signed and approved by: Hudson Brady M.D. Radiologis
== END | disposition home or self-care (01) ==
LOC: RADMAMWWP 09:02
PROVIDERS: ATTEND Family Medicine
DX: Z12.31 Encounter for screening mammogram for malignant neoplasm of breast (principal); Z78.0 Asymptomatic menopausal state; Z80.3 Family history of malignant neoplasm of breast
CPT/HCPCS: 77063; 77067

== ENCOUNTER → 2024-05-11 | Outpatient (CLI) | payer MEDICARE ==
--- NOTE | 2024-05-11 12:04 | CTL ---
EXAMINATION TYPE: CT Low Dose Lung DATE OF EXAM ORDERED: 05/11/2024 HISTORY:. Lung cancer screening CT DLP: 99.[address] CTDI: 2.4 mGy Automated exposure control for dose reduction was used. COMPARISON: 04/27/2023 TECHNIQUE: Low dose computed tomography scan was performed through the chest at 1 mm thick sections a nd reconstructed images in multiple planes at 1 mm and [address] DIAGNOSTIC QUALITY: Satisfactory FINDINGS: There are [id number] emphysematous changes with an upper lobe predominance.. There are diffuse scattered stable sub-3 mm nodules. There is no new or suspicious lung mass or nodul e. There is no abnormal airspace/consolidative density or abnormal interstitial density. There is no pleural effusion, pleural thickening or pneumothorax. Great vessels the chest are normal and is no mediastinal, hilar or axillary adenopathy Limited scanning through the upper abdomen reveal stable marked dense calcification of the right adre nal gland. No focal osseous lesions are seen. IMPRESSION: 1. Lung RADS category 2 benign. Continue routine screening intervals. 2. Mild to moderate emphysematous changes. 3. No acute cardiac pulmonary disease.
== END | disposition home or self-care (01) ==
LOC: RADCTMAIN 11:22
PROVIDERS: ATTEND Family Medicine
DX: Z12.2 Encounter for screening for malignant neoplasm of respiratory organs (principal); J43.9 Emphysema, unspecified; F17.210 Nicotine dependence, cigarettes, uncomplicated
CPT/HCPCS: 71271

== ENCOUNTER 2024-07-04 08:44 | Day surgery (SDC) | payer MEDICARE ==
[2024-07-04 09:35] VITALS: TEMP 98.3
[2024-07-04] MEDS: IV FLUID CONTINUATION 1,000 ML IV ONE (09:38)
[2024-07-04] MEDS: LACTATED RINGERS 1,000 ML IV SCH (09:38)
[2024-07-04] MEDS ORDERED: PROPOFOL 10 MG/ML 20 ML VIAL IV ONE (09:50)
--- NOTE | 2024-07-04 10:14 | P.PCN ---
Date of Procedure: 07/04/24 Description of Procedure: PREOPERATIVE DIAGNOSIS: Personal history of colon polyps Colonoscopy screening. POSTOPERATIVE DIAGNOSIS: Colonoscopy screening. Diverticulosis, scattered. OPERATION: Colonoscopy to the cecum, ileocecal valve and appendiceal orifice. SURGEON: Jana Hart MD. ANESTHESIA: MAC. INDICATIONS: The patient is a 63-year-old female who presents for colonoscopy screening. She has personal history of colon polyps within the last 5 years. Benefits and risks were described and informed consent was obtained. DESCRIPTION OF PROCEDURE: The patient had undergone GoLytely prep. The patient had been brought into the operating room and laid in the left lateral decubitus position. After adequate intravenous sedation, the rectum was examined with 2% lidocaine jelly. No external hemorrhoids were encountered. The rectal tone was within normal limits. No lesions were palpated in the rectal vault. An Olympus colonoscope was advanced until the cecum, ileocecal valve and appendiceal orifice were clearly viewed. The prep was fair. Scattered diverticulosis was encountered. No co lonic polyps were found. No evidence of focal colitis was found. Retroflexion of the scope demonstrated grade 1 internal hemorrhoids without active bleeding or inflammation. The colon was desufflated. The patient had tolerated the procedure well. Withdrawal time was over 6 minutes. FINDINGS: Aronchick preparation quality scale 2 (1-5) Internal hemorrhoids, grade 1 No external prolapsed hemorrhoids. No arteriovenous malformations. No adenomatous polyps. No focal colitis. Sigmoid diverticulosis requiring abdominal wall pressure RECOMMENDATIONS: Lower endoscopy in 5 years, 2028 Plan - Discharge Summary Discharge Rx Participant: Yes New Discharge Prescriptions: Continue Cyclobenzaprine [Flexeril] 10 mg PO Q8HR PRN PRN Reason: Muscle Spasm Cholecalciferol [Vitamin D3 (25 Mcg = 1000 Iu)] 1,000 unit PO DAILY Celecoxib [CeleBREX] 200 mg PO DAILY Fexofenadine HCl [Sobia Allergy] 180 mg PO DAILY Albuterol Sulfate [Proair Hfa] 1 - 2 puff INHALATION TID PRN PRN Reason: Shortness Of Breath Hydrocodone/Acetaminophen [[place] 7.5-325] 1 tab PO Q8HR PRN PRN Reason: Pain Acetaminophen Tab [Tylenol] 1,000 mg PO Q6HR PRN #30 tablet PRN Reason: Pain Omeprazole [PriLOSEC] 40 mg PO DAILY Fluticasone/Umeclidin/Vilanter [Trelegy Ellipta 100-62.5-25] 1 inh INHALATION BID Atorvastatin [Lipitor] 10 mg PO HS Discharge Medication List Albuterol Sulfate [Proair Hfa] 1 - 2 puff INHALATION TID PRN 08/18/16 [History] Celecoxib [CeleBREX] 200 mg PO DAILY 08/18/16 [History] Cholecalciferol [Vitamin D3 (25 Mcg = 1000 Iu)] 1,000 unit PO DAILY 08/18/16 [History] Cyclobenzaprine [Flexeril] 10 mg PO Q8HR PRN 08/18/16 [History] Fexofenadine HCl [Sobia Allergy] 180 mg PO DAILY 08/18/16 [History] Hydrocodone/Acetaminophen [[place] 7.5-325] 1 tab PO Q8HR PRN 08/18/16 [History] Acetaminophen Tab [Tylenol] 1,000 mg PO Q6HR PRN #30 tablet 04/30/21 [Rx] Atorvastatin [Lipitor] 10 mg PO HS 06/29/24 [History] Fluticasone/Umeclidin/Vilanter [Trelegy Ellipta 100-62.5-25] 1 inh INHALATION BID 06/29/24 [History] Omeprazole [PriLOSEC] 40 mg PO DAILY 06/29/24 [History] Follow up Appointment(s)/Referral(s): Jana Hart MD [STAFF PHYSICIAN] - As Needed Patient Instructions/Handouts: Diverticulosis (DC), Diverticulosis Diet (GEN) Activity/Diet/Wound Care/Special Instructions: Repeat colonoscopy 5 years, 2028 Discharge Disposition: HOME SELF-CARE
--- NOTE | 2024-07-04 10:14 | P.GSHP ---
History of Present Illness H&P Date: 07/04/24 CHIEF COMPLAINT: Colon screen HISTORY OF PRESENT ILLNESS: The patient is a 63-year-old female who presents for colon screen. Lower endoscopy was offered for further evaluation and management. PAST MEDICAL HISTORY: Please see list. PAST SURGICAL HISTORY: Please see list. MEDICATIONS: Please see list. ALLERGIES: Please see list. SOCIAL HISTORY: No illicit drug use FAMILY HISTORY: No reports of Crohn disease or ulcerative colitis. REVIEW OF ORGAN SYSTEMS: CONSTITUTIONAL: No reports of fevers or chills. PHYSICAL EXAM: VITAL SIGNS: Stable GENERAL: Well-developed pleasant in no acute distress. HEENT: No scleral icterus. Extraocular movements grossly intact. Moist buccal mucosa. NECK: Supple without lymphadenopathy. CHEST: Unlabored respirations. Equal bilateral excursions. CARDIOVASCULAR: Regular rate and rhythm. Distal 2+ pulses. ABDOMEN: Soft, nontender, nondistended. MUSCULOSKELETAL: No clubbing, cyanosis, or edema. ASSESSMENT: 1. Colon screen. PLAN: 1. Recommend proceeding with a lower endoscopy Past Medical History Past Medical History: Asthma, COPD, GERD/Reflux, Hyperlipidemia, Osteoarthritis (OA) Additional Past Medical History / Comment(s): BACK PAIN, ENVIRONMENTAL ALLERGIES, HX OF VOCAL CORD POLYPS, neck pain History of Any Multi-Drug Resistant Organisms: None Reported Past Surgical History: Appendectomy, Back Surgery, Cholecystectomy, Heart Catheterization, Joint Replacement, Orthopedic Surgery Additional Past Surgical History / Comment(s): SINUS SURGERY,RIGHT AND LEFT TOTAL HIP, CYST ON RIGHT OVARY-EXC, VOCAL CORD POLYP, RIGHT BUNIONECTOMY, LAPAROSCOPIC EXAM , LOWER BACK AND CERVICAL FUSION., HEART CATH 04/01/21 ([facility]), colonoscopy Past Anesthesia/Blood Transfusion Reactions: Motion Sickness, Postoperative Nausea & Vomiting (PONV) Smoking Status: Current every day smoker - Past Family History Mother Family Medical History: Cancer Additional Family Medical History / Comment(s): breast cancer Father Family Medical History: Cancer Additional Family Medical History / Comment(s): LEUKEMIA Medications and Allergies Home Medications Medication Instructions Recorded Confirmed Type Albuterol Sulfate [Proair Hfa] 1 - 2 puff INHALATION TID PRN 08/18/16 07/04/24 History Celecoxib [CeleBREX] 200 mg PO DAILY 08/18/16 07/04/24 History Cholecalciferol [Vitamin D3 (25 1,000 unit PO DAILY 08/18/16 07/04/24 History Mcg = 1000 Iu)] Cyclobenzaprine [Flexeril] 10 mg PO Q8HR PRN 08/18/16 07/04/24 History Fexofenadine HCl [Sobia Allergy] 180 mg PO DAILY 08/18/16 07/04/24 History Hydrocodone/Acetaminophen [[place] 1 tab PO Q8HR PRN 08/18/16 07/04/24 History 7.5-325] Acetaminophen Tab [Tylenol] 1,000 mg PO Q6HR PRN #30 tablet 04/30/21 07/04/24 Rx Atorvastatin [Lipitor] 10 mg PO HS 06/29/24 07/04/24 History Fluticasone/Umeclidin/Vilanter 1 inh INHALATION BID 06/29/24 07/04/24 History [Trelegy Ellipta 100-62.5-25] Omeprazole [PriLOSEC] 40 mg PO DAILY 06/29/24 07/04/24 History Allergies Allergy/AdvReac Type Severity Reaction Status Date / Time adhesive tape Allergy Rash/Hives Verified 07/04/24 09:27 Iodinated Contrast Media Allergy FLUSHED,HOT Verified 07/04/24 09:27 [Iodinated Contrast Media - AND PASSED IV Dye] OUT iodine Allergy PER Verified 07/04/24 09:27 ALLERGY TEST nickel Allergy Rash/Hives Verified 07/04/24 09:27 shellfish derived [Shellfish] Allergy PER Verified 07/04/24 09:27 ALLERGY TEST NSAIDS (Non-Steroidal AdvReac Unknown stomach Verified 07/04/24 09:27 Anti-Inflamma "burning" Surgical - Exam Vital Signs Temp Pulse Resp BP Pulse Ox 98.3 F 56 L 14 142/72 97 07/04/24 09:31 07/04/24 09:31 07/04/24 09:31 07/04/24 09:31 07/04/24 09:31
[2024-07-04 10:47] VITALS: BP 135/84; PULSE 52; RESP 18
== END 2024-07-04 10:50 | disposition home or self-care (01) ==
LOC: ORWHC2ENDO 08:44
PROVIDERS: ATTEND Surgery Plastic and Reconstructive Surgery
DX: Z86.010 Personal history of colon polyps